=== PATIENT | male | born 1965 | race Caucasian/White ===

== ENCOUNTER 2018-10-06 07:59 | Day surgery (SDC) | payer OTHER ==
[2018-10-02 09:43] VITALS: BMI 30.8
[~2018-10-06 07:59] MED LIST: LACTATED RINGERS 1,000 ML IV SCH
[2018-10-06] MEDS ORDERED: LACTATED RINGERS 1,000 ML IV ONE (08:35)
[2018-10-06 08:37] VITALS: RESP 16; TEMP 97.1
[2018-10-06] MEDS ORDERED: fentaNYL (PF) 50 MCG/ML 2 ML AMP ONE (08:51)
[2018-10-06] MEDS ORDERED: MIDAZOLAM 2 MG/2 ML VIAL ONE (08:51)
[2018-10-06] MEDS ORDERED: PROPOFOL 10 MG/ML 20 ML VIAL IV ONE (08:51)
--- NOTE | 2018-10-06 08:56 | P.GSHP ---
History of Present Illness H&P Date: 10/06/18 Chief Complaint: Screening colonoscopy This is a 53-year-old male who presents today for screening colonoscopy. Patient denies any significant GI complaints. 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), ORIF rt wrist Past Anesthesia/Blood Transfusion Reactions: Postoperative Nausea & Vomiting ( PONV) Smoking Status: Former smoker - Past Family History Mother Family Medical History: No Reported History Medications and Allergies Home Medications Medication Instructions Recorded Confirmed Type Allopurinol [Zyloprim] 100 mg PO DAILY 10/02/18 10/06/18 History Naltrexone HCl [Revia] 50 mg PO DAILY 10/02/18 10/06/18 History Vortioxetine Hydrobromide 10 mg PO DAILY 10/02/18 10/06/18 History [Trintellix] Allergies Allergy/AdvReac Type Severity Reaction Status Date / Time meperidine [From Demerol] Allergy Nausea Verified 10/06/18 08:36 Surgical - Exam Vital Signs Temp Pulse Resp BP Pulse Ox 97.1 F L 88 16 138/75 97 10/06/18 08:15 10/06/18 08:15 10/06/18 08:15 10/06/18 08:15 10/06/18 08:15 - General well developed, well nourished, no distress - Eyes PERRL - ENT normal pinna - Neck no masses - Respiratory normal expansion - Cardiovascular Rhythm: regular - Abdomen Abdomen: soft, non tender Assessment and Plan Assessment: We'll perform screening colonoscopy.
--- NOTE | 2018-10-06 09:10 | P.OP ---
Date of Procedure: 10/06/18 Preoperative Diagnosis: Screening colonoscopy Postoperative Diagnosis: Diverticulosis Left colon polyp Procedure(s) Performed: Colonoscopy Anesthesia: MAC Surgeon: Ky Hurtado Pathology: other (Left colon polyp) Condition: stable Disposition: PACU Description of Procedure: The patient's placed on the endoscopy table in the lateral position. He received IV sedation. Digital rectal exam was performed which revealed no abnormalities. The prostate was symmetric without nodules. The flexor colonoscope was then placed patient anus and passed throughout the entire colon. The ileocecal valve was visualized. The cecum, ascending and transverse colon appeared normal. In the descending colon there was a hole seen this removed with the snare. In the descending and; there is mild diverticular changes. Scope was then brought back the rectum and this appeared normal. Scope was withdrawn for patient.
[2018-10-06 09:30] VITALS: BP 106/71; PULSE 59
== END 2018-10-06 09:52 | disposition home or self-care (01) ==
LOC: ORWHC2ENDO 07:59
PROVIDERS: ATTEND Surgery
DX: Z12.11 Encounter for screening for malignant neoplasm of colon (principal); D12.4 Benign neoplasm of descending colon; K57.30 Diverticulosis of large intestine without perforation or abscess without bleeding; E78.5 Hyperlipidemia, unspecified; M10.9 Gout, unspecified; F32.9 Major depressive disorder, single episode, unspecified; Z87.891 Personal history of nicotine dependence; Z89.612 Acquired absence of left leg above knee; Z79.891 Long term (current) use of opiate analgesic; Z79.899 Other long term (current) drug therapy; Z88.5 Allergy status to narcotic agent
CPT/HCPCS: 88305; 45385; J2250; J3010; J2704

== ENCOUNTER 2018-10-22 20:31 | Inpatient (IN) | payer OTHER ==
[2018-10-22] MEDS ORDERED: SODIUM CHLORIDE 0.9% 1,000 ML IV STA (20:40)
[2018-10-22] MEDS ORDERED: SODIUM CHLORIDE 0.9% 500 ML 500 ML IV STA (20:40)
[2018-10-22] MEDS ORDERED: SODIUM CHLORIDE 0.9% 1,000 ML with MVI, ADULT NO.4 WITH VIT K 10 ML, THIAMINE 100 MG, F... IV ONE ×4 (20:41)
--- NOTE | 2018-10-22 20:55 | ED ---
Alcohol HPI - General Chief Complaint: Alcohol Stated Complaint: Detox Time Seen by Provider: 10/22/18 20:39 Source: patient, RN notes reviewed Mode of arrival: ambulatory Limitations: no limitations - History of Present Illness Initial Comments: 53-year-old male presents emergency Department with chief complaint of alcohol abuse. Patient has been alcoholic for social years. Patient states he was over 5 years up until 6 months ago he started drinking again. Patient states he drinks approximately 1/5 of vodka daily. Patient states he usually takes and the following day when he feels with jaw symptoms. Patient is requesting detox her medications to help with detox. Patient is not suicidal or homicidal. Patient denies any physical complaints at this time including abdominal pain, nausea vomiting. patient has no chest pain or shortness of breath no fevers or chills. - Related Data Home Medications Medication Instructions Recorded Confirmed Allopurinol [Zyloprim] 100 mg PO DIRECTED 10/02/18 10/22/18 Naltrexone HCl [Revia] 50 mg PO DIRECTED 10/02/18 10/22/18 Vortioxetine Hydrobromide 10 mg PO DIRECTED 10/02/18 10/22/18 [Trintellix] Allergies Allergy/AdvReac Type Severity Reaction Status Date / Time meperidine [From Demerol] AdvReac Nausea Verified 10/22/18 20:53 Review of Systems ROS Statement: Those systems with pertinent positive or pertinent negative responses have been documented in the HPI. ROS Other: All systems not noted in ROS Statement are negative. 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 Absent: scleral icterus, conjunctival injection, periorbital swelling ENT exam: Present: normal exam, normal oropharynx, mucous membranes moist, TM's normal bilaterally, normal external ear exam Neck exam: Present: normal inspection, full ROM. Absent: tenderness, meningismus, lymphadenopathy Respiratory exam: Present: normal lung sounds bilaterally. Absent: respiratory distress, wheezes, rales, rhonchi, stridor Cardiovascular Exam: Present: regular rate, normal rhythm, normal heart sounds. Absent: systolic murmur, diastolic murmur, rubs, gallop, clicks GI/Abdominal exam: Present: soft, normal bowel sounds. Absent: distended, tenderness, guarding, rebound, rigid Back exam: Absent: CVA tenderness (R), CVA tenderness (L) Neurological exam: Present: alert, oriented X3, CN II-XII intact Skin exam: Present: warm, dry, intact, normal color. Absent: rash Course Vital Signs 10/22/18 10/22/18 20:32 21:30 Temperature 98.3 F Pulse Rate 89 95 Respiratory 20 18 Rate Blood Pressure 131/83 145/88 O2 Sat by Pulse 93 L 94 L Oximetry Medical Decision Making - Medical Decision Making 53-year-old male presented for alcohol intoxication. Patient did drive to the emergency department intoxicated. Patient has attempted Aleve multiple times unable to obtain a ride. Patient will be made the hospital for alcohol int oxication, pending withdrawal. - Lab Data Result diagrams: 10/22/18 21:00 10/22/18 21:00 Lab Results 10/22/18 10/22/18 Range/Units 21:00 21:00 WBC 3.8 (3.8-10.6) k/uL RBC 5.02 (4.30-5.90) m/uL Hgb 16.1 (13.0-17.5) gm/dL Hct 46.1 (39.0-53.0) % MCV 91.9 (80.0-100.0) fL MCH 32.0 (25.0-35.0) pg MCHC 34.8 (31.0-37.0) g/dL RDW 13.2 (11.5-15.5) % Plt Count 214 (150-450) k/uL Neutrophils % 23 % Lymphocytes % 62 % Monocytes % 7 % Eosinophils % 4 % Basophils % 1 % Neutrophils # 0.9 L (1.3-7.7) k/uL Lymphocytes # 2.4 (1.0-4.8) k/uL Monocytes # 0.3 (0-1.0) k/uL Eosinophils # 0.1 (0-0.7) k/uL Basophils # 0.1 (0-0.2) k/uL Sodium 139 (137-145) mmol/L Potassium 4.4 (3.5-5.1) mmol/L Chloride 102 (98-107) mmol/L Carbon Dioxide 22 (22-30) mmol/L Anion Gap 15 mmol/L BUN 8 L (9-20) mg/dL Creatinine 0.64 L (0.66-1.25) mg/dL Est GFR (CKD-EPI)AfAm >90 (>60 ml/min/1.73 sqM) Est GFR (CKD-EPI)NonAf >90 (>60 ml/min/1.73 sqM) Glucose 122 H (74-99) mg/dL Calcium 8.8 (8.4-10.2) mg/dL Magnesium 2.0 (1.6-2.3) mg/dL Total Bilirubin 0.8 (0.2-1.3) mg/dL AST 89 H (17-59) U/L ALT 100 H (21-72) U/L Alkaline Phosphatase 170 H (38-126) U/L Total Protein 8.1 (6.3-8.2) g/dL Albumin 4.8 (3.5-5.0) g/dL Lipase 152 (23-300) U/L Serum Alcohol 375 H* mg/dL Disposition Clinical Impression: Alcoholic intoxication, Alcohol withdrawal syndrome Disposition: ADMITTED IP TO THIS HOSP Condition: Fair Referrals: Martínez Hathaway MD [Primary Care Provider] - 1-2 days
[2018-10-22] MEDS ORDERED: LORazepam 2 MG/ML INJ IV STA ×2 (21:15→21:26)
[2018-10-22 21:26] LABS: Basophils # (A) 0.1 k/uL (0-0.2); Basophils % (A) 1 %; Eosinophils # (A) 0.1 k/uL (0-0.7); Eosinophils % (A) 4 %; HCT 46.1 % (39.0-53.0); HGB 16.1 gm/dL (13.0-17.5); Lymphocytes # (A) 2.4 k/uL (1.0-4.8); Lymphocytes % (A) 62 %; MCHC 34.8 g/dL (31.0-37.0); MCV 91.9 fL (80.0-100.0); Mean Platelet Volume 6.3; Monocytes # (A) 0.3 k/uL (0-1.0); Monocytes % (A) 7 %; Neutrophils # (A) 0.9 k/uL (1.3-7.7); Neutrophils % (A) 23 %; Platelet Count 214 k/uL (150-450); RBC 5.02 m/uL (4.30-5.90); RDW 13.2 % (11.5-15.5); WBC 3.8 k/uL (3.8-10.6)
[2018-10-22] MEDS ORDERED: ONDANSETRON 4 MG/2 ML VIAL IVP STA (21:26)
[2018-10-22 21:30] LABS: ALT 100 U/L (21-72); AST 89 U/L (17-59); Albumin 4.8 g/dL (3.5-5.0); Alkaline Phosphatase 170 U/L (38-126); Anion Gap 15 mmol/L; Blood Urea Nitrogen 8 mg/dL (9-20); Calcium 8.8 mg/dL (8.4-10.2); Carbon Dioxide 22 mmol/L (22-30); Chloride 102 mmol/L (98-107); Glucose 122 mg/dL (74-99); Lipase 152 U/L (23-300); Potassium 4.4 mmol/L (3.5-5.1); Sodium 139 mmol/L (137-145); Total Bilirubin 0.8 mg/dL (0.2-1.3); Total Protein 8.1 g/dL (6.3-8.2)
[2018-10-22 21:42] LABS: Alcohol 375 mg/dL
[2018-10-22 21:58] VITALS: RESP 18
[2018-10-22] MEDS ORDERED: ONDANSETRON 4 MG/2 ML VIAL IVP PRN (22:19)
[2018-10-22] MEDS ORDERED: LORazepam 2 MG/ML INJ IV PRN ×3 (22:21)
[2018-10-23 01:45] LABS: Appearance,Urine Clear (Clear); Bilirubin,Urine Negative (Negative); Blood,Urine Negative (Negative); Color,Urine Yellow; Glucose,Urine (UA) Negative (Negative); Ketones,Urine 1+ (Negative); Leukocyte Esterase,Urine Negative (Negative); Nitrite,Urine Negative (Negative); PH, Urine 5.5 (5.0-8.0); Protein,Urine Negative (Negative); Specific Gravity,Urine 1.006 (1.001-1.035); Urobilinogen,Urine <2.0 mg/dL (<2.0)
[2018-10-23 08:06] VITALS: BP 144/84; PULSE 85; TEMP 98.6
[2018-10-23] MEDS: THIAMINE 100 MG TAB PO SCH ×2 (08:46→11:26)
[2018-10-23] MEDS ORDERED: PANTOPRAZOLE 40 MG/10 ML VIAL IV SCH (09:00)
--- NOTE | 2018-10-30 11:17 | HP ---
HISTORY AND PHYSICAL A 53-year-old white male who presents with alcohol abuse, alcohol for many years. He is admitted with sugar levels over 350. He denies suicidal or homicidal ideations. HOME MEDICINES: 1. Zyloprim. 2. ReVia. 3. Trintellix. ALLERGIES: DEMEROL. PAST MEDICAL HISTORY: Dyslipidemia, gout, left leg prosthesis. FAMILY HISTORY: Mother is negative. 14 POINT REVIEW OF SYSTEMS: Negative except for as mentioned in HPI. PHYSICAL EXAMINATION: CARDIOVASCULAR: S1, S2. LUNGS: Clear. GI: Soft. HEMATOLOGIC: Negative Homans. PSYCH: Fair mood and affect. NEUROLOGIC: Alert and orient x3. VASCULAR: Normal dorsalis pedis, posterior tibial, radial pulse. Temp 98.3, pulse 89 to 95, respiratory 18 to 20, blood pressure 130s to 140s/80s, O2 is 93% to 94% on room air. Labs were reviewed. ASSESSMENT: Alcohol intoxication, alcohol withdrawal symptom, detox CIWA protocol. Please see further orders in H and P. MMODL / IJN: [id number] /
--- NOTE | 2018-10-30 11:53 | DS ---
DISCHARGE SUMMARY DATE OF ADMISSION: 10/22/2018 DATE OF DISCHARGE: 10/23/2018 MEDICATIONS: 1. Naltrexone 50 mg daily. 2. Trintellix 10 mg daily. 3. Zyloprim 100 mg daily. DISCHARGE DIAGNOSES: 1. Gout. 2. Alcoholism. 3. Depression. Patient came with alcohol intoxication. Discussed with the patient alcohol rehab facilities to go to and the need to quit drinking alcohol. The patient was stabilized. The patient signed out AGAINST MEDICAL ADVICE and was discharged on his own recognizance. MMODL / IJN: [id number] /
== END 2018-10-23 14:11 | disposition left against medical advice (07) | DRG 894 ==
LOC: EC 20:31 → OBSVTOIN 22:25 → 1SOBS 22:25
PROVIDERS: ADMIT Family Medicine; ATTEND Family Medicine
DX: F10.239 Alcohol dependence with withdrawal, unspecified (principal); F32.9 Major depressive disorder, single episode, unspecified; F10.229 Alcohol dependence with intoxication, unspecified; Y90.8 Blood alcohol level of 240 mg/100 ml or more; E78.5 Hyperlipidemia, unspecified; M10.9 Gout, unspecified; Z79.899 Other long term (current) drug therapy; Z97.14 Presence of artificial left leg (complete) (partial); Z87.891 Personal history of nicotine dependence; Z88.5 Allergy status to narcotic agent
CPT/HCPCS: 36415; 80053; 80320; 81003; 83690; 83735; 85025; 96365; 96375; 96376; 99284

== ENCOUNTER 2018-11-18 18:05 | Observation (INO) | payer OTHER ==
--- NOTE | 2018-11-18 19:17 | ED ---
General Adult HPI - General Chief complaint: Chest Pain Stated complaint: ETOH, chest pain Time Seen by Provider: 11/18/18 18:43 Source: patient, family, RN notes reviewed Mode of arrival: wheelchair Limitations: no limitations - History of Present Illness Initial comments: Patient is a pleasant 53-year-old male presenting to the emergency department wi th alcohol intoxication and chest discomfort. Majority of history is taken from the . Patient does admit to drinking alcohol daily, more over the past few days. Patient complains of some associated chest discomfort however admits during exam the discomfort is actually in the epigastric region. Patient has had some nausea and one episode of vomiting. states patient has been a little bit shaky at times. - Related Data Home Medications Medication Instructions Recorded Confirmed Allopurinol [Zyloprim] 100 mg PO DIRECTED 10/02/18 11/18/18 Acetaminophen [Tylenol] 325 mg PO Q8HR 11/18/18 11/18/18 Vortioxetine Hydrobromide 20 mg PO DAILY 11/18/18 11/18/18 [Trintellix] Allergies Allergy/AdvReac Type Severity Reaction Status Date / Time meperidine [From Demerol] AdvReac Nausea Verified 11/18/18 19:18 Review of Systems ROS Statement: Those systems with pertinent positive or pertinent negative responses have been documented in the HPI. ROS Other: All systems not noted in ROS Statement are negative. Constitutional: Denies: fever Eyes: Denies: eye pain ENT: Denies: ear pain Respiratory: Denies: cough Cardiovascular: Reports: as per HPI Endocrine: Denies: fatigue Gastrointestinal: Reports: as per HPI, abdominal pain, nausea Genitourinary: Denies: dysuria Musculoskeletal: Denies: back pain Skin: Denies: rash Neurological: Denies: weakness 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), ORIF rt wrist Past Anesthesia/Blood Transfusion Reactions: Postoperative Nausea & Vomiting (PONV) Past Psychological History: No Psychological Hx Reported Smoking Status: Former smoker Past Alcohol Use History: None Reported Past Drug Use History: None Reported - Past Family History Mother Family Medical History: No Reported History General Exam Limitations: no limitations General appearance: alert, appears intoxicated Head exam: Present: atraumatic Eye exam: Present: normal appearance, PERRL, EOMI, nystagmus ENT exam: Present: normal oropharynx Neck exam: Present: normal inspection Respiratory exam: Present: normal lung sounds bilaterally Cardiovascular Exam: Present: regular rate, normal rhythm Expanded Peripheral pulses: 2+: Radial (R), Radial (L), Dorsalis Pedis (R), Dorsalis Pedis (L) GI/Abdominal exam: Present: soft, tenderness (Moderate epigastric tenderness), normal bowel sounds. Absent: distended, guarding, rebound, rigid, pulsatile mass Extremities exam: Present: normal inspection, other (Left leg amputation). Absent: pedal edema, calf tenderness Neurological exam: Present: alert Psychiatric exam: Present: normal affect, normal mood Skin exam: Present: normal color Course Vital Signs 11/18/18 18:16 Temperature 98.2 F Pulse Rate 84 Respiratory 16 Rate Blood Pressure 134/89 O2 Sat by Pulse 96 Oximetry EKG Findings - EKG Comments: EKG Findings:: Normal sinus rhythm 74. NH 172. QRS 104. QT 412. QTC 457. Left axis. Normal QRS. No acute ST change. Medical Decision Making - Medical Decision Making Patient reevaluated. Patient updated. Case was discussed in detail with Dr. Hathaway, who will admit his patient. - Lab Data Result diagrams: 11/18/18 19:46 11/18/18 19:46 Lab Results 11/18/18 11/18/18 11/18/18 Range/Units 19:46 19:46 19:46 WBC 2.9 L (3.8-10.6) k/uL RBC 4.74 (4.30-5.90) m/uL Hgb 15.0 (13.0-17.5) gm/dL Hct 43.0 (39.0-53.0) % MCV 90.7 (80.0-100.0) fL MCH 31.6 (25.0-35.0) pg MCHC 34.9 (31.0-37.0) g/dL RDW 15.1 (11.5-15.5) % Plt Count 102 L D (150-450) k/uL Neutrophils % 37 % Lymphocytes % 47 % Monocytes % 9 % Eosinophils % 2 % Basophils % 2 % Neutrophils # 1.1 L (1.3-7.7) k/uL Lymphocytes # 1.4 (1.0-4.8) k/uL Monocytes # 0.3 (0-1.0) k/uL Eosinophils # 0.1 (0-0.7) k/uL Basophils # 0.1 (0-0.2) k/uL PT (9.0-12.0) sec INR (<1.2) APTT (22.0-30.0) sec Sodium 143 (137-145) mmol/L Potassium 3.6 (3.5-5.1) mmol/L Chloride 101 (98-107) mmol/L Carbon Dioxide 24 (22-30) mmol/L Anion Gap 18 mmol/L BUN 6 L (9-20) mg/dL Creatinine 0.54 L (0.66-1.25) mg/dL Est GFR (CKD-EPI)AfAm >90 (>60 ml/min/1.73 sqM) Est GFR (CKD-EPI)NonAf >90 (>60 ml/min/1.73 sqM) Glucose 117 H (74-99) mg/dL Calcium 8.5 (8.4-10.2) mg/dL Magnesium 1.8 (1.6-2.3) mg/dL Total Bilirubin 1.1 (0.2-1.3) mg/dL AST 161 H (17-59) U/L ALT 117 H (21-72) U/L Alkaline Phosphatase 140 H (38-126) U/L Creatine Kinase 92 (55-170) U/L CK-MB (CK-2) 0.4 (0.0-2.4) ng/mL Troponin I <0.012 (0.000-0.034) ng/mL Total Protein 7.5 (6.3-8.2) g/dL Albumin 4.6 (3.5-5.0) g/dL Amylase 55 (30-110) U/L Lipase 201 (23-300) U/L Serum Alcohol 449 H* mg/dL 11/18/18 Range/Units 19:46 WBC (3.8-10.6) k/uL RBC (4.30-5.90) m/uL Hgb (13.0-17.5) gm/dL Hct (39.0-53.0) % MCV (80.0-100.0) fL MCH (25.0-35.0) pg MCHC (31.0-37.0) g/dL RDW (11.5-15.5) % Plt Count (150-450) k/uL Neutrophils % % Lymphocytes % % Monocytes % % Eosinophils % % Basophils % % Neutrophils # (1.3-7.7) k/uL Lymphocytes # (1.0-4.8) k/uL Monocytes # (0-1.0) k/uL Eosinophils # (0-0.7) k/uL Basophils # (0-0.2) k/uL PT 10.6 (9.0-12.0) sec INR 1.0 (<1.2) APTT 23.3 (22.0-30.0) sec Sodium (137-145) mmol/L Potassium (3.5-5.1) mmol/L Chloride (98-107) mmol/L Carbon Dioxide (22-30) mmol/L Anion Gap mmol/L BUN (9-20) mg/dL Creatinine (0.66-1.25) mg/dL Est GFR (CKD-EPI)AfAm (>60 ml/min/1.73 sqM) Est GFR (CKD-EPI)NonAf (>60 ml/min/1.73 sqM) Glucose (74-99) mg/dL Calcium (8.4-10.2) mg/dL Magnesium (1.6-2.3) mg/dL Total Bilirubin (0.2-1.3) mg/dL AST (17-59) U/L ALT (21-72) U/L Alkaline Phosphatase (38-126) U/L Creatine Kinase (55-170) U/L CK-MB (CK-2) (0.0-2.4) ng/mL Troponin I (0.000-0.034) ng/mL Total Protein (6.3-8.2) g/dL Albumin (3.5-5.0) g/dL Amylase (30-110) U/L Lipase (23-300) U/L Serum Alcohol mg/dL - Radiology Data Radiology results: image reviewed Disposition Clinical Impression: Alcoholic intoxication, Chest pain Disposition: ADMITTED IP TO THIS [facility] Is patient prescribed a controlled substance at d/c from ED?: No Referrals: Martínez Hathaway MD [Primary Care Provider] - 1-2 days Decision Time: 20:45
[2018-11-18] MEDS ORDERED: SODIUM CHLORIDE 0.9% 1,000 ML with MVI, ADULT NO.4 WITH VIT K 10 ML, THIAMINE 100 MG, F... IV ONE ×4 (19:45)
[2018-11-18 20:26] LABS: Basophils # (A) 0.1 k/uL (0-0.2); Basophils % (A) 2 %; Eosinophils # (A) 0.1 k/uL (0-0.7); Eosinophils % (A) 2 %; Lymphocytes # (A) 1.4 k/uL (1.0-4.8); Lymphocytes % (A) 47 %; MCH 31.6 pg (25.0-35.0); MCHC 34.9 g/dL (31.0-37.0); MCV 90.7 fL (80.0-100.0); Mean Platelet Volume 7.4; Monocytes # (A) 0.3 k/uL (0-1.0); Monocytes % (A) 9 %; Neutrophils # (A) 1.1 k/uL (1.3-7.7); Neutrophils % (A) 37 %; Partial Thromboplastin Time 23.3 sec (22.0-30.0); Platelet Count 102 k/uL (150-450); Prothrombin Time 10.6 sec (9.0-12.0); RBC 4.74 m/uL (4.30-5.90); RDW 15.1 % (11.5-15.5); WBC 2.9 k/uL (3.8-10.6)
[2018-11-18] MEDS ORDERED: PANTOPRAZOLE 40 MG/10 ML VIAL IVP STA (20:26)
[2018-11-18 20:28] LABS: ALT 117 U/L (21-72); AST 161 U/L (17-59); Albumin 4.6 g/dL (3.5-5.0); Alkaline Phosphatase 140 U/L (38-126); Amylase 55 U/L (30-110); Anion Gap 18 mmol/L; Blood Urea Nitrogen 6 mg/dL (9-20); Calcium 8.5 mg/dL (8.4-10.2); Carbon Dioxide 24 mmol/L (22-30); Chloride 101 mmol/L (98-107); Creatine Kinase 92 U/L (55-170); Glucose 117 mg/dL (74-99); Lipase 201 U/L (23-300); Magnesium 1.8 mg/dL (1.6-2.3); Potassium 3.6 mmol/L (3.5-5.1); Sodium 143 mmol/L (137-145); Total Bilirubin 1.1 mg/dL (0.2-1.3); Total Protein 7.5 g/dL (6.3-8.2)
[2018-11-18] MEDS ORDERED: SODIUM CHLORIDE 0.9% 500 ML 500 ML IV STA (20:31)
[2018-11-18] MEDS ORDERED: ONDANSETRON 4 MG/2 ML VIAL IVP STA (20:31)
[2018-11-18 20:39] LABS: Alcohol 449 mg/dL; Creatine Kinase MB 0.4 ng/mL (0.0-2.4); Troponin I <0.012 ng/mL (0.000-0.034)
[2018-11-18] MEDS ORDERED: NALOXONE 0.4 MG/ML 1 ML VIAL IV PRN (20:41)
[2018-11-18] MEDS ORDERED: LORazepam 2 MG/ML INJ IV PRN ×2 (20:42)
--- NOTE | 2018-11-18 21:03 | XR ---
EXAMINATION TYPE: XR abdomen 1V DATE OF EXAM: 11/18/2018 COMPARISON: NONE HISTORY: Chest pain. Vomiting. TECHNIQUE: 2 views FINDINGS: 2 supine show no sign of intestinal obstruction or pneumoperitoneum. Fecal pattern is antoinette l. Lung bases are clear. There is no pathologic calcifications over the kidneys. There are phlebolith s in the pelvis. IMPRESSION: Nonacute abdomen.
--- NOTE | 2018-11-18 21:04 | XR ---
EXAMINATION TYPE: XR chest 2V DATE OF EXAM: 11/18/2018 COMPARISON: NONE HISTORY: Chest pain TECHNIQUE: Frontal and lateral views of the chest are obtained. FINDINGS: Heart and mediastinum are normal. Lungs are clear. Diaphragm is normal. Bony thorax appear s normal. IMPRESSION: Normal chest
[2018-11-19] MEDS: SODIUM CHLORIDE 0.9% 1,000 ML IV SCH ×2 (00:15→10:49)
[2018-11-19] MEDS: LORazepam 2 MG/ML INJ IV PRN ×6 (00:18→22:39)
[2018-11-19] MEDS: THIAMINE 100 MG TAB PO SCH ×2 (10:49→15:45)
[2018-11-19] MEDS: PANTOPRAZOLE 40 MG/10 ML VIAL IV SCH (10:49)
--- NOTE | 2018-11-19 15:28 | HP ---
HISTORY AND PHYSICAL Ismael Benjamin is a 53-year-old male who presented to the ED at [facility] with chest discomfort. He had been drinking alcohol. He had some chest discomfort and had this in the epigastric pain. He had nausea and an episode of vomiting. He was a little bit shaky and subsequently was admitted for further evaluation and management. PAST MEDICAL HISTORY: Positive for hyperlipidemia, gout, left leg prosthesis, history of orthopedic surgery, history of an AKA in the left leg, history of ORIF of the right fist, history of postop nausea and vomiting. SOCIAL HISTORY: Patient is a former smoker. He drinks alcohol, about a fifth a day and had been drinking a fifth. FAMILY HISTORY: Noncontributory. MEDICATIONS: Prior to admission were Zyloprim, Tylenol and Trintellix. REVIEW OF SYSTEMS: Noncontributory. PHYSICAL EXAMINATION: Patient had a blood pressure 123/69, respiratory rate of 18, pulse rate of 80, temperature 98.4, O2 SAT on room air is 94%. Patient is sleepy but arousable. HEENT reveals pupils that are equal, no jugular venous distention. Chest is clear. Cardiovascular system reveals an S1, S2. Abdomen is soft. There is no edema. White count is 2.9, hemoglobin of 15, sodium 143, potassium 3.6, chloride 101, bicarb 24, BUN 6, creatinine of 0.54, glucose 117. Alcohol level of 449, AST 161, ALT 117, alk phos 140. IMPRESSION: 1. Metabolic encephalopathy. 2. Alcoholism with acute alcohol intoxication. 3. Alcoholic liver disease. 4. Chest pain. At this point in time, would admit him to the hospital. Keep him on IV fluids, thiamin and multivitamin. GI prophylaxis. Watch for alcohol withdrawal. Depending on how he does. we shall make further changes to his care. MMODL / IJN: [id number] /
[2018-11-19] MEDS ORDERED: Potassium Replacement Protocol 1 EACH MISC MISCELLANE PRN (15:48)
[2018-11-19] MEDS ORDERED: POTASSIUM CHLORIDE ER 20 MEQ TAB.ER PO SCH (16:00)
[2018-11-19 16:10] VITALS: BMI 33.0
[2018-11-19] MEDS: ONDANSETRON 4 MG/2 ML VIAL IVP PRN (18:03)
[2018-11-19] MEDS: POTASSIUM CHLORIDE ER 20 MEQ TAB.ER PO SCH ×2 (19:34→20:36)
[2018-11-19 23:56] VITALS: RESP 18
[2018-11-20] MEDS: SODIUM CHLORIDE 0.9% 1,000 ML IV SCH (02:57)
[2018-11-20 07:55] VITALS: BP 138/76; PULSE 76; TEMP 98.9
[2018-11-20] MEDS: PANTOPRAZOLE 40 MG/10 ML VIAL IV SCH (08:00)
[2018-11-20] MEDS: ONDANSETRON 4 MG/2 ML VIAL IVP PRN (11:07)
[2018-11-20] MEDS: THIAMINE 100 MG TAB PO SCH (15:08)
--- NOTE | 2018-11-21 06:39 | DS ---
DISCHARGE SUMMARY Ismael Benjamin is a 53-year-old male who presented to the ED on November2018. He had come in with chest discomfort. He had been drinking alcohol. He had epigastric pains and nausea and vomiting. He was shaky. PAST MEDICAL HISTORY: Positive for hyperlipidemia, gout, left leg prosthesis, orthopedic surgery, previous AKA, history of ORIF of the right wrist. History of postop nausea and vomiting. SOCIAL HISTORY: Patient is a former smoker. FAMILY HISTORY: Noncontributory. PHYSICAL EXAMINATION: His vitals were stable. He was sleepy but arousable. His chest was clear. Abdomen is soft. He had no edema. INITIAL IMPRESSION: 1. Metabolic encephalopathy. 2. Alcoholism with acute alcohol intoxication. 3. Alcoholic liver disease. 4. Chest pain. The patient was admitted to the hospital, kept on IV fluids, treated with thiamine and multivitamin and GI prophylaxis. He did not develop any jitteriness and did not go through any alcohol withdrawal. On November2018, he was hemodynamically stable, was awake and alert, and was subsequently discharged home. On that day, his respiratory rate is 18, pulse rate of 76, temperature 98.9, blood pressure 138/76, O2 saturation on room air is 95%. HEENT is unremarkable. Chest was clear. Cardiovascular system is S1, S2. Abdomen is soft. There is no edema. Patient was discharged home. DISCHARGE DIAGNOSES: 1. Metabolic encephalopathy. 2. Dehydration. 3. Alcohol intoxication. CONDITION: Stable. DISCHARGE DIET: Regular. ACTIVITIES: As tolerated. DISCHARGE MEDICATIONS: 1. Zyloprim 100 mg p.o. b.i.d. 2. Tylenol 325 mg p.o. q.8h p.r.n. 3. Trintellix 20 mg p.o. daily. He is to follow up with Dr. Martínez Hathaway in one week time. MMODL / IJN: [id number] /
--- NOTE | 2018-11-27 10:15 | CDI ---
Documentation Clarification Form Date: 11/27/2018 9:59:00 AM From: EILEEN Mcguire; Padmini Pimentel Sliver Lap Machine Tender Phone: If you have a question about this query, please contact Padmini Pimentel Sliver Lap Machine Tender at [phone] between 8am and 5pm. Admit Date: 11/19/2018 11:52:00 AM Patient Name: Ismael Benjamin Visit Number: [id number] Discharge Date: 11/20/2018 3:28:00 PM ATTENTION: The Clinical Documentation Specialists (CDI) and [facility] Coding Staff appreciate your assistance in clarifying documentation. Please respond to the clarification below the line at the bottom and electronically sign. The CDI & [facility] Coding staff will review the response and follow-up if needed. Please note: Queries are made part of the Legal Health Record. If you have any questions, please contact the author of this message via ITS. Dr. Rajiv Daly Metabolic Encephalopathy is documented in the H&P and Dischg Summary on this 1 day stay. Details of documentation = ED -Neuro Exam -Alert. History/Risk Factors: Hyperlipidema, gout, AKA. Clinical Indicators: Chest pain, epigastric pain, blood alcohol 449. Vital Signs: BP 123/69, resp 18, pulse 80, temp 98.4 O2 sat on room air 94%. LAB: WBC 2.9, hemoglobin 15, sodium 143, potassium 3.6, chloride 101, bicarb 24, BUN 6, Creatinine 0.54, glucose 117, Blood alcohol 449. Treatment: IV fluids, thiamin and multivitamin. Please document confirmation of the diagnosis of _Metabolic encephalopathy is applicable to this patient for this visit along with its associated clinical indicators (i.e., signs, symptoms, findings, treatments, monitoring). If this condition was ruled out or documented in error, please indicate below. MTDD
--- NOTE | 2018-12-03 10:08 | CDI ---
Documentation Clarification Form Date: 12/03/2018 9:59:00 AM From: EILEEN Mcguire; Padmini Pimentel Mechanical Service Specialist Phone: If you have a question about this query, please contact Padmini Pimentel Mechanical Service Specialist at [phone] between 8am and 5pm. Admit Date: 11/19/2018 11:52:00 AM Patient Name: Ismael Benjamin Visit Number: [id number] Discharge Date: 11/20/2018 3:28:00 PM ATTENTION: The Clinical Documentation Specialists (CDI) and [facility] Coding Staff appreciate your assistance in clarifying documentation. Please respond to the clarification below the line at the bottom and electronically sign. The CDI & [facility] Coding staff will review the response and follow-up if needed. Please note: Queries are made part of the Legal Health Record. If you have any questions, please contact the author of this message via ITS. Dr. Rajiv Daly Metabolic Encephalopathy is documented in the H&P and Dischg Summary on this 1 day stay. Details of documentation = ED -Neuro Exam -Alert. History/Risk Factors: Hyperlipidema, gout, AKA. Clinical Indicators: Chest pain, epigastric pain Vital Signs: BP 123/69, resp 18, pulse 80, temp 98.4 O2 sat on room air 94%. LAB: WBC 2.9, hemoglobin 15, sodium 143, potassium 3.6, chloride 101, bicard 24, BUN 6, Creatinine 0.54, glucose 117, Blood alcohol 449. Treatment: Other Treatment: IV fluids, thiamin and multivitamin. Please document confirmation of the diagnosis of _Metabolic encephalopathy is applicable to this patient for this visit along with its associated clinical indicators (i.e., signs, symptoms, findings, treatments, monitoring). If this condition was ruled out or documented in error, please indicate below. MTDD
== END 2018-11-20 15:28 | disposition home or self-care (01) ==
LOC: EC 18:05 → INTOOBSV 20:41 → OBSVTOIN 20:41 → 1SOBS 20:41 → INTOOBSV 11-19 11:52 → OBSVTOIN 11-19 11:52 → 1SOBS 11-19 18:23 → UNDODISIN 11-20 15:28
PROVIDERS: ADMIT Family Medicine; ATTEND Family Medicine
DX: F10.229 Alcohol dependence with intoxication, unspecified (principal); G93.41 Metabolic encephalopathy; E86.0 Dehydration; R07.89 Other chest pain; K70.9 Alcoholic liver disease, unspecified; E78.5 Hyperlipidemia, unspecified; M10.9 Gout, unspecified; Z97.14 Presence of artificial left leg (complete) (partial); Z87.891 Personal history of nicotine dependence; Z89.612 Acquired absence of left leg above knee; Y90.8 Blood alcohol level of 240 mg/100 ml or more; Z79.899 Other long term (current) drug therapy; Z88.5 Allergy status to narcotic agent
CPT/HCPCS: 96366 ×2; 96375 ×2; 96376 ×2; 96365; 99285; 36415; 93005; 97530; 97162; 80053; 82150; 82550; 82553; 83690; 83735; 84132; 84484 ×2; 85025; 85610; 85730; 80320; 71046; 74018; G0378 ×4; J2060; J3411; J2405 ×3; C9113 ×3

== ENCOUNTER 2019-01-21 22:02 | Observation (INO) | payer OTHER ==
[2019-01-21] MEDS ORDERED: SODIUM CHLORIDE 0.9% 1,000 ML IV STA (22:30)
--- NOTE | 2019-01-21 23:08 | ED ---
General Adult HPI - General Chief complaint: Chest Pain Stated complaint: ETOH,Abd Pain Time Seen by Provider: 01/21/19 22:09 Source: patient, family, EMS Mode of arrival: EMS Limitations: altered mental status (Appears intoxicated) - History of Present Illness Initial comments: This patient is a 53-year-old man brought by ambulance to be evaluated for alcohol intoxication and also had complained of epigastric pain. The patient is able to give a little history but appears very intoxicated, more history is presented by the patient's partner who is at the bedside. She states that she called the ambulance because he was quite intoxicated and was indicating some epigastric pain. The patient when I interview him is denying pains. He states he does not have any chest or abdominal pain. EMS stated that he also had reported epigastric pain when they arrived though it now appears to have resolved. Patient not able to characterize what he was feeling earlier. He does appear to be very intoxicated. He denies dyspnea. Denies nausea or vomiting area -: hour(s) Location: abdomen Radiation: non-radiation Consistency: now resolved Improves with: none Worsens with: none - Related Data Home Medications Medication Instructions Recorded Confirmed Allopurinol [Zyloprim] 100 mg PO DAILY 10/02/18 01/21/19 Vortioxetine Hydrobromide 20 mg PO DAILY 11/18/18 01/21/19 [Trintellix] Naproxen [Naprosyn] 500 mg PO DAILY PRN 01/21/19 01/21/19 Allergies Allergy/AdvReac Type Severity Reaction Status Date / Time meperidine [From Demerol] AdvReac Nausea Verified 01/21/19 22:30 Review of Systems ROS Statement: Those systems with pertinent positive or pertinent negative responses have been documented in the HPI. ROS Other: All systems not noted in ROS Statement are negative. Limitations: ROS unobtainable due to patients medical condition (Intoxicated) Respiratory: Denies: cough, dyspnea Cardiovascular: Denies: chest pain Gastrointestinal: Reports: as per HPI, abdominal pain. 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 Absent: PERRL, EOMI, scleral icterus, conjunctival injection ENT exam: Present: mucous membranes dry Neck exam: Present: normal inspection. Absent: tenderness Respiratory exam: Present: normal lung sounds bilaterally. Absent: respiratory distress, wheezes, rales, rhonchi, stridor Cardiovascular Exam: Present: regular rate, normal rhythm, normal heart sounds. Absent: systolic murmur, diastolic murmur, rubs, gallop GI/Abdominal exam: Present: soft. Absent: distended, tenderness, guarding, rebound, mass Extremities exam: Present: normal inspection, normal capillary refill. Absent: pedal edema, calf tenderness Back exam: Present: normal inspection. Absent: CVA tenderness (R), CVA tenderness (L) Neurological exam: Present: alert, CN II-XII intact, other (Patient has ataxia and dysarthria). Absent: oriented X3 (Oriented to person and place could not state the date.), motor sensory deficit Skin exam: Present: warm, dry, intact, normal color. Absent: rash Course Vital Signs 01/21/19 01/21/19 22:08 23:47 Temperature 97.8 F Pulse Rate 94 72 Respiratory 18 18 Rate Blood Pressure 138/88 130/92 O2 Sat by Pulse 93 L 95 Oximetry EKG Findings - EKG Comments: EKG Findings:: Low-voltage QRS. Possible old anterior infarct. - EKG Results: EKG: interpreted by ERMD, sinus rhythm (Rate 90 bpm) - Blocks, [place], Hypertrophy, ST Abn: QRS axis and voltage: left axis deviation (-30 to -90) Medical Decision Making - Medical Decision Making Patient is a 53-year-old man brought by ambulance for intoxication and also reporting some epigastric pain. Here he does not have any pain. The patient's alcohol level is quite high and he does show some early withdrawal symptoms, being tremulous and he was at times hypertensive. Patient will be admitted given the danger of full DTs developing. - Lab Data Result diagrams: 01/21/19 22:50 01/21/19 22:50 Lab Results 01/21/19 01/21/19 01/21/19 Range/Units 22:50 22:50 22:50 WBC 3.0 L (3.8-10.6) k/uL RBC 3.86 L (4.30-5.90) m/uL Hgb 12.6 L (13.0-17.5) gm/dL Hct 34.4 L (39.0-53.0) % MCV 89.3 (80.0-100.0) fL MCH 32.7 (25.0-35.0) pg MCHC 36.6 (31.0-37.0) g/dL RDW 15.8 H (11.5-15.5) % Plt Count 95 L (150-450) k/uL Neutrophils % 37 % Lymphocytes % 47 % Monocytes % 9 % Eosinophils % 3 % Basophils % 1 % Neutrophils # 1.1 L (1.3-7.7) k/uL Lymphocytes # 1.4 (1.0-4.8) k/uL Monocytes # 0.3 (0-1.0) k/uL Eosinophils # 0.1 (0-0.7) k/uL Basophils # 0.0 (0-0.2) k/uL Manual Slide Review Performed Sodium 141 (137-145) mmol/L Potassium 3.0 L (3.5-5.1) mmol/L Chloride 107 (98-107) mmol/L Carbon Dioxide 19 L (22-30) mmol/L Anion Gap 15 mmol/L BUN 9 (9-20) mg/dL Creatinine 0.56 L (0.66-1.25) mg/dL Est GFR (CKD-EPI)AfAm >90 (>60 ml/min/1.73 sqM) Est GFR (CKD-EPI)NonAf >90 (>60 ml/min/1.73 sqM) Glucose 94 (74-99) mg/dL Calcium 7.3 L (8.4-10.2) mg/dL Total Bilirubin 0.7 (0.2-1.3) mg/dL AST 63 H (17-59) U/L ALT 30 (21-72) U/L Alkaline Phosphatase 117 (38-126) U/L Troponin I <0.012 (0.000-0.034) ng/mL Total Protein 6.0 L (6.3-8.2) g/dL Albumin 3.5 (3.5-5.0) g/dL Amylase 40 (30-110) U/L Lipase 116 (23-300) U/L Serum Alcohol 397 H* mg/dL Disposition Clinical Impression: Alcoholic intoxication, Alcohol withdrawal syndrome Disposition: ADMITTED IP TO THIS [facility] Condition: Serious Instructions (If sedation given, give patient instructions): Alcohol Withdrawal (ED) Is patient prescribed a controlled substance at d/c from ED?: No Referrals: Martínez Hathaway MD [Primary Care Provider] - 1-2 days
[2019-01-21 23:35] LABS: Basophils % (A) 1 %; Eosinophils # (A) 0.1 k/uL (0-0.7); Eosinophils % (A) 3 %; HCT 34.4 % (39.0-53.0); HGB 12.6 gm/dL (13.0-17.5); Lymphocytes # (A) 1.4 k/uL (1.0-4.8); Lymphocytes % (A) 47 %; MCH 32.7 pg (25.0-35.0); MCHC 36.6 g/dL (31.0-37.0); MCV 89.3 fL (80.0-100.0); Mean Platelet Volume 7.4; Monocytes # (A) 0.3 k/uL (0-1.0); Monocytes % (A) 9 %; Neutrophils # (A) 1.1 k/uL (1.3-7.7); Neutrophils % (A) 37 %; RBC 3.86 m/uL (4.30-5.90); RDW 15.8 % (11.5-15.5)
[2019-01-21 23:49] LABS: ALT 30 U/L (21-72); AST 63 U/L (17-59); African American GFR (CKD) >90 (>60 ml/min/1.73 sqM); Albumin 3.5 g/dL (3.5-5.0); Alkaline Phosphatase 117 U/L (38-126); Amylase 40 U/L (30-110); Anion Gap 15 mmol/L; Blood Urea Nitrogen 9 mg/dL (9-20); Calcium 7.3 mg/dL (8.4-10.2); Carbon Dioxide 19 mmol/L (22-30); Chloride 107 mmol/L (98-107); Glucose 94 mg/dL (74-99); Lipase 116 U/L (23-300); Sodium 141 mmol/L (137-145); Total Bilirubin 0.7 mg/dL (0.2-1.3)
[2019-01-22 00:09] LABS: Alcohol 397 mg/dL
[2019-01-22 00:13] LABS: Platelet Count 95 k/uL (150-450)
[2019-01-22] MEDS ORDERED: THIAMINE 100 MG/ML 2 ML VIAL IM STA (01:05)
[2019-01-22] MEDS ORDERED: LORazepam 2 MG/ML INJ IV PRN ×3 (01:05)
[2019-01-22] MEDS ORDERED: NALOXONE 0.4 MG/ML 1 ML VIAL IV PRN (01:06)
[2019-01-22] MEDS ORDERED: IBUPROFEN 400 MG TAB PO PRN (01:06)
[2019-01-22] MEDS ORDERED: MAG HYDROX/AL HYDROX/SIMETH 30 ML CUP PO PRN (01:06)
[2019-01-22] MEDS ORDERED: CALCIUM CARBONATE 500 MG CHEWABLE PO PRN (01:06)
[2019-01-22] MEDS ORDERED: PROCHLORPERAZINE 5 MG TAB PO PRN (01:06)
[2019-01-22] MEDS ORDERED: PROMETHAZINE 25 MG TAB PO PRN (01:06)
[2019-01-22] MEDS ORDERED: POTASSIUM CHLORIDE ER 20 MEQ TAB.ER PO STA (01:08)
[2019-01-22] MEDS: SODIUM CHLORIDE 0.9% 1,000 ML IV SCH ×2 (02:07→09:20)
[2019-01-22 03:00] VITALS: RESP 16
[2019-01-22 07:39] VITALS: BP 129/84; PULSE 88; TEMP 98.5
[2019-01-22] MEDS ORDERED: POTASSIUM CHLORIDE ER 20 MEQ TAB.ER PO SCH (09:00)
[2019-01-22] MEDS ORDERED: FAMOTIDINE 20 MG TAB PO SCH (09:00)
[2019-01-22 11:04] LABS: Appearance,Urine Clear (Clear); Bilirubin,Urine Negative (Negative); Blood,Urine Negative (Negative); Color,Urine Yellow; Glucose,Urine (UA) Negative (Negative); Ketones,Urine 3+ (Negative); Leukocyte Esterase,Urine Negative (Negative); Nitrite,Urine Negative (Negative); PH, Urine 5.5 (5.0-8.0); Protein,Urine Trace (Negative); Specific Gravity,Urine 1.015 (1.001-1.035); Urobilinogen,Urine <2.0 mg/dL (<2.0)
--- NOTE | 2019-01-22 16:02 | P.HPIM ---
History of Present Illness H&P Date: 01/22/19 Chief Complaint: Alcohol intoxication, altered mental status This is a 53-year-old admitted from the hospital with alcohol intoxication and some epigastric pain, he has a history of binge alcohol issue was admitted into hospital for withdrawal, patient has a history of gout and left leg prosthesis, labs are abnormal for leukopenia, anemia, level over 397 Review of Systems All systems: negative 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), ORIF rt wrist Past Anesthesia/Blood Transfusion Reactions: Postoperative Nausea & Vomiting (PONV) Past Psychological History: No Psychological Hx Reported Smoking Status: Former smoker Past Alcohol Use History: Daily Additional Past Alcohol Use History / Comment(s): smoked a few oer day, patient drinks a fifth of vodka every day Past Drug Use History: None Reported Additional Drug Use History / Comment(s): Patient reports last drink was 01/21/19 - Past Family History Mother Family Medical History: No Reported History Father Additional Family Medical History / Comment(s): Heart Disease Medications and Allergies Home Medications Medication Instructions Recorded Confirmed Type Allopurinol [Zyloprim] 100 mg PO DAILY 10/02/18 01/21/19 History Vortioxetine Hydrobromide 20 mg PO DAILY 11/18/18 01/21/19 History [Trintellix] Naproxen [Naprosyn] 500 mg PO DAILY PRN 01/21/19 01/21/19 History Allergies Allergy/AdvReac Type Severity Reaction Status Date / Time meperidine [From Demerol] AdvReac Nausea Verified 01/21/19 22:30 Physical Exam Vitals: Vital Signs Temp Pulse Pulse Resp BP BP Pulse Ox 01/22/19 07:00 98.5 F 88 16 129/84 93 L 01/22/19 02:45 98.0 F 98 16 124/87 98 01/22/19 02:11 97.9 F 94 18 131/93 97 01/21/19 23:47 72 18 130/92 95 01/21/19 22:08 97.8 F 94 18 138/88 93 L Intake and Output 01/22/19 01/22/19 01/22/19 06:59 14:59 22:59 Intake Total 1000 480 Balance 1000 480 Intake: Intake, IV Titration 1000 Amount Sodium Chloride 0.9% 1, 1000 000 ml @ 125 mls/hr IV . Q8H [facility] Rx#:[id number] Oral 480 - Constitutional General appearance: average body habitus, cooperative, disheveled, morbidly obese - EENT Eyes: anicteric sclerae, EOMI, PERRLA, dentition normal, normal appearance ENT: normal oropharynx Ears: bilateral: normal - Neck Neck: normal ROM Carotids: bilateral: upstroke normal Thyroid: bilateral: normal size - Respiratory Respiratory: bilateral: CTA - Cardiovascular Rhythm: regular Heart sounds: normal: S1, S2 - Gastrointestinal General gastrointestinal: distended, normal bowel sounds, soft - Neurologic Neurologic: CNII-XII intact - Musculoskeletal Musculoskeletal: gait normal, generalized weakness, strength equal bilaterally - Psychiatric Psychiatric: A&O x's 3, appropriate affect, intact judgment & insight Results CBC & Chem 7: 01/21/19 22:50 01/21/19 22:50 Labs: Abnormal Lab Results - Last 24 Hours (Table) 01/21/19 01/21/19 01/22/19 Range/Units 22:50 22:50 10:00 WBC 3.0 L (3.8-10.6) k/uL RBC 3.86 L (4.30-5.90) m/uL Hgb 12.6 L (13.0-17.5) gm/dL Hct 34.4 L (39.0-53.0) % RDW 15.8 H (11.5-15.5) % Plt Count 95 L (150-450) k/uL Neutrophils # 1.1 L (1.3-7.7) k/uL Potassium 3.0 L (3.5-5.1) mmol/L Carbon Dioxide 19 L (22-30) mmol/L Creatinine 0.56 L (0.66-1.25) mg/dL Calcium 7.3 L (8.4-10.2) mg/dL AST 63 H (17-59) U/L Total Protein 6.0 L (6.3-8.2) g/dL Urine Protein Trace H (Negative) Urine Ketones 3+ H (Negative) Serum Alcohol 397 H* mg/dL Thrombosis Risk Factor Assmnt - Choose All That Apply Any of the Below Risk Factors Present?: Yes Each Factor Represents 1 point: Age 41-60 years, Obesity (BMI >25) Thrombosis Risk Factor Assessment Total Risk Factor Score: 2 Thrombosis Risk Factor Assessment Level: Low Risk Assessment and Plan Assessment: Alcohol intoxication level of 397 Leukopenia Chronic anemia Hypokalemia Metabolic acidosis Mildly elevated AST Ketonuria Plan: Repeat labs tomorrow Replace electrolytes When necessary Ativan Gentle rehydration Recommendations pending plan of care as per response Time with Patient: Greater than 30
--- NOTE | 2019-01-22 16:03 | P.DS ---
Providers Date of admission: 01/22/19 01:08 Attending physician: Stuart Colón Consults: 01/22/19 01:05 Consult Physician Routine Consulting Provider: Jenna Nair Consult Reason/Comments: Alcohol addiction/withdrawal Do you want consulting provider notified?: Yes [facility] Course: See H&P and ER progress note Patient Condition at Discharge: Fair Plan - Discharge Summary Discharge Rx Participant: No New Discharge Prescriptions: No Action Allopurinol [Zyloprim] 100 mg PO DAILY Vortioxetine Hydrobromide [Trintellix] 20 mg PO DAILY Naproxen [Naprosyn] 500 mg PO DAILY PRN PRN Reason: Pain Discharge Medication List Allopurinol [Zyloprim] 100 mg PO DAILY 10/02/18 [History] Vortioxetine Hydrobromide [Trintellix] 20 mg PO DAILY 11/18/18 [History] Naproxen [Naprosyn] 500 mg PO DAILY PRN 01/21/19 [History] Follow up Appointment(s)/Referral(s): Martínez Hathaway MD [Primary Care Provider] - 1-2 days Patient Instructions/Handouts: Alcohol Withdrawal (ED) Discharge Disposition: Left Against Medical Advice
[2019-01-22] MEDS ORDERED: THIAMINE 100 MG TAB PO SCH (17:00)
== END 2019-01-22 14:03 | disposition left against medical advice (07) ==
LOC: EC 22:02 → 4SSUR 01-22 01:08
PROVIDERS: ADMIT Internal Medicine Sleep Medicine; ATTEND Internal Medicine Sleep Medicine
DX: F10.239 Alcohol dependence with withdrawal, unspecified (principal); F10.229 Alcohol dependence with intoxication, unspecified; Y90.8 Blood alcohol level of 240 mg/100 ml or more; D64.9 Anemia, unspecified; D72.819 Decreased white blood cell count, unspecified; E78.5 Hyperlipidemia, unspecified; E87.2 Acidosis; R74.0 Nonspecific elevation of levels of transaminase and lactic acid dehydrogenase [LDH]; M10.9 Gout, unspecified; E66.01 Morbid (severe) obesity due to excess calories; Z68.30 Body mass index [BMI] 30.0-30.9, adult; E87.6 Hypokalemia; Z87.891 Personal history of nicotine dependence; Z89.612 Acquired absence of left leg above knee; Z97.14 Presence of artificial left leg (complete) (partial); Z79.899 Other long term (current) drug therapy; Z88.8 Allergy status to other drugs, medicaments and biological substances
CPT/HCPCS: 96360; 96361; 96372; 99285; 36415; 93005; 80053; 82150; 83690; 84484; 85025; 81003; 80320; G0378; J3411

== ENCOUNTER 2019-04-23 15:22 | Emergency (ER) | payer OTHER ==
[2019-04-23 15:37] VITALS: BP 149/93; PULSE 90; RESP 16; TEMP 98.7
[2019-04-23] MEDS ORDERED: SODIUM CHLORIDE 0.9% 1,000 ML IV STA (16:30)
--- NOTE | 2019-04-23 17:06 | ED ---
General Adult HPI - General Chief complaint: Back Pain/Injury Stated complaint: ETOH Time Seen by Provider: 04/23/19 15:50 Source: family, RN notes reviewed, old records reviewed Mode of arrival: wheelchair Limitations: no limitations - History of Present Illness Initial comments: 54-year-old male patient past history significant for alcohol abuse presents in ED with figeeta for concern alcohol abuse. She reports the patient is drinking excessively and had a fall 3 weeks ago. Patient complains of mild paralumbar back pain which he says is chronic. Patient reports he had a fall approximately 3 weeks ago when he broke his nose which he reset himself. Patient denies any loss of consciousness. Patient denies any headache or pain in neck. Denies ch est pain, abdominal pain denies any other complaints at this time. Systemic: Pt denies fatigue, fever/chills, rash. Pt denies weakness, night sweats, weight loss. Neuro: Pt denies headache, visual disturbances, syncope or pre-syncope. HEENT: Pt denies ocular discharge or irritation, otalgia, rhinorrhea, pharyngitis or notable lymphadenopathy. Cardiopulmonary: Pt denies chest pain, SOB, heart palpitations, dyspnea on exertion. Abdominal/GI: Pt denies abdominal pain, n/v/d. : Pt denies dysuria, burning w/ urination, frequency/urgency. Denies new onset urinary or bowel incontinence. MSK: Pt denies loss of strength or function in extremities. Neuro: Pt denies new onset weakness, paresthesias. - Related Data Home Medications Medication Instructions Recorded Confirmed Allopurinol [Zyloprim] 100 mg PO DAILY 10/02/18 01/21/19 Vortioxetine Hydrobromide 20 mg PO DAILY 11/18/18 01/21/19 [Trintellix] Naproxen [Naprosyn] 500 mg PO DAILY PRN 01/21/19 01/21/19 Allergies Allergy/AdvReac Type Severity Reaction Status Date / Time meperidine [From Demerol] AdvReac Nausea Verified 04/23/19 15:37 Review of Systems ROS Statement: Those systems with pertinent positive or pertinent negative responses have been documented in the HPI. ROS Other: All systems not noted in ROS Statement are negative. 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 HEENT: NC/AT, trachea midline, neck supple, no lymphadenopathy. Posterior phary nx non erythematous, without exudates. External ears appear normal, without discharge. Mucous membranes moist. Eyes PERRLA, EOM intact. There is no scleral icterus. No pallor noted. Cardiopulmonary: RRR, no murmurs, rubs or gallops, no JVD noted. Lungs CTAB in anterior and posterior howell. No peripheral edema. Abdominal exam: Abdomen soft and non-distended. Abdomen non-tender to palpation in all 4 quadrants. Bowel sounds active in LLQ. No hepatosplenomegaly. No ecchymosis Neuro: CN II-XII grossly intact. No nuchal rigidity. No raccon eyes, no saldaña sign, no hemotympanum. No cervical spinal tenderness. MSK: Right paralumbar region mildly tender to palpation. No posterior calf tenderness bilaterally, homans sign negative bilaterally. Posterior tibialis and radial pulse +2 bilaterally. Sensation intact in upper and lower extremities. Full active ROM in upper and lower extremities, 5/5 stregnth. Limitations: no limitations Course Vital Signs 04/23/19 15:32 Temperature 98.7 F Pulse Rate 90 Respiratory 16 Rate Blood Pressure 149/93 O2 Sat by Pulse 94 L Oximetry Medical Decision Making - Medical Decision Making 54-year-old male patient presents ED for alcohol abuse. Patient vital signs stable, afebrile. Physical limbs displayed mild right paralumbar tenderness. Laboratory investigations revealed mild hypokalemia, supplemented in ED. CT brain and C-spine did not display acute process. Plain films lumbar spine did not display Acute process. Plan initially was a patient at discharged and go home with matthew. However time discharge stanley requested patient's alcohol be drawn. Alcohol is found to be elevated at 393. Patient was strongly advised admission the hospital. Patient refused. Risks discussed with patient includ ing , patient was understanding. Stanley reportedly able to take him home and watch him for the night. Pt states that he will not be driving any vehicles. AMA. Case discussed in depth with Dr. Stoll. - Lab Data Result diagrams: 04/23/19 16:40 04/23/19 16:40 Lab Results 04/23/19 04/23/19 04/23/19 Range/Units 16:40 16:40 18:45 WBC 2.6 L (3.8-10.6) k/uL RBC 4.77 (4.30-5.90) m/uL Hgb 15.0 (13.0-17.5) gm/dL Hct 43.1 (39.0-53.0) % MCV 90.3 (80.0-100.0) fL MCH 31.4 (25.0-35.0) pg MCHC 34.8 (31.0-37.0) g/dL RDW 15.2 (11.5-15.5) % Plt Count 72 L (150-450) k/uL Neutrophils % 35 % Lymphocytes % 45 % Monocytes % 7 % Eosinophils % 6 % Basophils % 4 % Neutrophils # 0.9 L (1.3-7.7) k/uL Lymphocytes # 1.2 (1.0-4.8) k/uL Monocytes # 0.2 (0-1.0) k/uL Eosinophils # 0.1 (0-0.7) k/uL Basophils # 0.1 (0-0.2) k/uL Manual Slide Review Performed Sodium 140 (137-145) mmol/L Potassium 3.3 L (3.5-5.1) mmol/L Chloride 97 L (98-107) mmol/L Carbon Dioxide 26 (22-30) mmol/L Anion Gap 17 mmol/L BUN 7 L (9-20) mg/dL Creatinine 0.72 (0.66-1.25) mg/dL Est GFR (CKD-EPI)AfAm >90 (>60 ml/min/1.73 sqM) Est GFR (CKD-EPI)NonAf >90 (>60 ml/min/1.73 sqM) Glucose 132 H (74-99) mg/dL Calcium 8.4 (8.4-10.2) mg/dL Serum Alcohol 386 H* mg/dL Disposition Clinical Impression: Substance abuse Disposition: Left Against Medical Advice Condition: Undetermined Additional Instructions: Patient to adhere to previously discussed treatment plan and will take medication(s) as directed. Patient to follow up with PCP in 1-2 days. Patient to return to ED if symptoms do not improve. Follow-up with primary care provider tomorrow, return to ER if condition worsens. Is patient prescribed a controlled substance at d/c from ED?: No Referrals: Martínez Hathaway MD [Primary Care Provider] - 1-2 days
[2019-04-23 17:11] LABS: Basophils # (A) 0.1 k/uL (0-0.2); Basophils % (A) 4 %; Eosinophils # (A) 0.1 k/uL (0-0.7); Eosinophils % (A) 6 %; HCT 43.1 % (39.0-53.0); Lymphocytes # (A) 1.2 k/uL (1.0-4.8); Lymphocytes % (A) 45 %; MCH 31.4 pg (25.0-35.0); MCHC 34.8 g/dL (31.0-37.0); MCV 90.3 fL (80.0-100.0); Monocytes # (A) 0.2 k/uL (0-1.0); Monocytes % (A) 7 %; Neutrophils # (A) 0.9 k/uL (1.3-7.7); Neutrophils % (A) 35 %; RBC 4.77 m/uL (4.30-5.90); RDW 15.2 % (11.5-15.5); WBC 2.6 k/uL (3.8-10.6)
--- NOTE | 2019-04-23 17:14 | CT ---
EXAMINATION TYPE: CT brain aj barber con DATE OF EXAM: 04/23/2019 COMPARISON: NONE HISTORY: Fall 3 weeks ago. Positive ETOH. Headache and neck pain. CT DLP: 1601.7 mGycm. Automated Exposure Control for Dose Reduction was Utilized. TECHNIQUE: CT scan of the head and cervical spine are performed without contrast. FINDINGS: There is no acute intracranial hemorrhage or midline shift identified. Diffuse ventricula r and sulcal prominence. The globes are intact and the visualized sinuses are clear. The calvarium i s intact. Age-indeterminate displaced fractures to nasal bridge suspected subacute or old as there is no focal soft tissue swelling. Cervical spine is visualized in its entirety from C1 through upper thoracic levels and demonstrates s traightened alignment without evidence of acute fracture or dislocation. Prevertebral soft tissue ap pears within normal limits. The C1-C2 articulation is within normal limits on the coronal images. V ertebral body heights are maintained. Mild to moderate disc space narrowing C5-C6 and C6-C7 levels. M oderate multilevel anterior spurring. Spinal canal is preserved. Thyroid gland is within normal limit s. Lung apices show no pneumothorax. IMPRESSION: 1. There is no acute fracture or dislocation evident in the cervical spine. 2. No acute intracranial hemorrhage or midline shift is seen.
--- NOTE | 2019-04-23 17:17 | XR ---
EXAMINATION TYPE: XR lumbar spine 2 or 3V DATE OF EXAM: 04/23/2019 CLINICAL HISTORY: Fall injury 3 weeks ago with low back pain. TECHNIQUE: Frontal and lateral images of the lumbar spine are obtained. COMPARISON: None FINDINGS: There are 5 lumbar type vertebral bodies identified. The lumbar spine shows straightened alignment without evidence of acute fracture or dislocation. Vertebral body heights are within normal limits. Mild disc space narrowing L2-L3 level. Mild multilevel anterior spurring. Density overlying anterior sacrum lateral view does not replicate on frontal view. IMPRESSION: No acute fracture or dislocation is seen in the lumbar spine.
[2019-04-23 17:21] LABS: African American GFR (CKD) >90 (>60 ml/min/1.73 sqM); Anion Gap 17 mmol/L; Blood Urea Nitrogen 7 mg/dL (9-20); Calcium 8.4 mg/dL (8.4-10.2); Carbon Dioxide 26 mmol/L (22-30); Chloride 97 mmol/L (98-107); Glucose 132 mg/dL (74-99); Non-African American GFR(CKD) >90 (>60 ml/min/1.73 sqM); Potassium 3.3 mmol/L (3.5-5.1); Sodium 140 mmol/L (137-145)
[2019-04-23 17:29] LABS: Platelet Count 72 k/uL (150-450)
[2019-04-23] MEDS ORDERED: POTASSIUM CHLORIDE ER 20 MEQ TAB.ER PO STA (18:23)
== END 2019-04-23 20:53 | disposition left against medical advice (07) ==
LOC: EC 15:22
DX: F10.10 Alcohol abuse, uncomplicated (principal); E87.6 Hypokalemia; M54.5 Low back pain; M10.9 Gout, unspecified; Z87.891 Personal history of nicotine dependence; Z88.5 Allergy status to narcotic agent; Z79.899 Other long term (current) drug therapy; Y90.8 Blood alcohol level of 240 mg/100 ml or more; Z53.20 Procedure and treatment not carried out because of patient's decision for unspecified reasons
CPT/HCPCS: 36415; 70450; 72100; 72125; 80048; 80320; 85025; 96360; 99284

== ENCOUNTER 2019-07-09 17:00 | Inpatient (IN) | payer OTHER ==
[2019-07-09] MEDS ORDERED: SODIUM CHLORIDE 0.9% 1,000 ML IV STA (17:10)
[2019-07-09] MEDS ORDERED: THIAMINE 100 MG/ML 2 ML VIAL IM STA (17:10)
[2019-07-09] MEDS ORDERED: LORazepam 2 MG/ML INJ IV PRN (17:11)
--- NOTE | 2019-07-09 17:13 | ED ---
General Adult HPI - General Stated complaint: ETOH Time Seen by Provider: 07/09/19 17:05 - History of Present Illness Initial comments: Dictation was produced using [employer] dictation software. please excuse any grammatical, word or spelling errors. Chief Complaint: 54-year-old male brought in for EtOH intoxication. History of Present Illness: Due to-year-old male. Patient drinks approximately 1 pint of vodka daily. Patient was at home when he was being visited by family members who are in town from [place]. They decided that enough was enough and that patient's alcohol addiction needs to be addressed. EMS was called patient was brought to the emergency department. Patient was found in his living quarters passed out from alcohol. Patient has any pain complaints at this time. Denies any shortness of breath. Patient is a poor historian at this time given clinical presentation. The ROS documented in this emergency department record has been reviewed and confirmed by me. Those systems with pertinent positive or negative responses have been documented in the HPI. All other systems are other negative and/or noncontributory. PHYSICAL EXAM: General Impression: Alert and oriented x3, not in acute distress, inebriated HEENT: Normocephalic atraumatic, extra-ocular movements intact, pupils equal and reactive to light bilaterally, mucous membranes moist. Cardiovascular: Heart regular rate and rhythm, S1&S2 audible, no murmurs, rubs or gallops Chest: Lungs clear to auscultation bilaterally, no rhonchi, no wheeze, no rales Abdomen: Bowel sounds present, abdomen soft, non-tender, non-distended, no organomegaly Musculoskeletal: Pulses present and equal in all extremities, no peripheral edema Motor: no focal deficits noted Neurological: CN II-XII grossly intact, no focal motor or sensory deficits noted Skin: Intact with no visualized rashes ED course: 54-year-old male presents with acute EtOH intoxication. Vital signs upon arrival are within acceptable limits. Patient's physical examination is grossly benign. Patient denies suicidal ideation. Family member at bedside reports that patient is suicidal and wants to shoot himself with a gun.. She reports she has a drug problem and he does not feel he is intentionally suicidal. Laboratory evaluation obtained. Leukopenia of 3.1 and rest of CBC unremarkable. Coag panel negative. Metabolic panel shows results consistent with alcoholic ketoacidosis. Serum alcohol is 416. Patient given thiamine, intravenous fluids. He'll be admitted for clinical sobriety with concern for possible EtOH withdrawal development. Psychiatry on consult for possible suicidal ideation. This patient case with Dr. Badillo was went except patient's care. Computed tomography scan of the brain is unremarkable. - Related Data Home Medications Medication Instructions Recorded Confirmed Allopurinol [Zyloprim] 100 mg PO DAILY 10/02/18 07/09/19 Vortioxetine Hydrobromide 20 mg PO DAILY 11/18/18 07/09/19 [Trintellix] Allergies Allergy/AdvReac Type Severity Reaction Status Date / Time meperidine [From Demerol] AdvReac Nausea Verified 07/09/19 18:00 Review of Systems ROS Statement: Those systems with pertinent positive or pertinent negative responses have been documented in the HPI. ROS Other: All systems not noted in ROS Statement are negative. 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), ORIF rt wrist Past Anesthesia/Blood Transfusion Reactions: Postoperative Nausea & Vomiting (PONV) Past Psychological History: No Psychological Hx Reported Smoking Status: Former smoker Past Alcohol Use History: Abuse, Daily, Heavy Past Drug Use History: None Reported - Past Family History Mother Family Medical History: No Reported History Father Additional Family Medical History / Comment(s): Heart Disease Course Vital Signs 07/09/19 17:06 Temperature 97.6 F Pulse Rate 94 Respiratory 18 Rate Blood Pressure 109/86 O2 Sat by Pulse 97 Oximetry Medical Decision Making - Lab Data Result diagrams: 07/09/19 17:26 07/09/19 17:26 Lab Results 07/09/19 07/09/19 07/09/19 Range/Units 17:26 17:26 17:26 WBC 3.1 L (3.8-10.6) k/uL RBC 4.31 (4.30-5.90) m/uL Hgb 13.9 (13.0-17.5) gm/dL Hct 38.8 L (39.0-53.0) % MCV 90.0 (80.0-100.0) fL MCH 32.2 (25.0-35.0) pg MCHC 35.7 (31.0-37.0) g/dL RDW 14.0 (11.5-15.5) % Plt Count 62 L (150-450) k/uL Neutrophils % 24 % Lymphocytes % 63 % Monocytes % 5 % Eosinophils % 5 % Basophils % 1 % Neutrophils # 0.7 L (1.3-7.7) k/uL Lymphocytes # 2.0 (1.0-4.8) k/uL Monocytes # 0.2 (0-1.0) k/uL Eosinophils # 0.2 (0-0.7) k/uL Basophils # 0.0 (0-0.2) k/uL Manual Slide Review Performed PT 11.0 (9.0-12.0) sec INR 1.0 (<1.2) Sodium 140 (137-145) mmol/L Potassium 3.5 (3.5-5.1) mmol/L Chloride 97 L (98-107) mmol/L Carbon Dioxide 24 (22-30) mmol/L Anion Gap 19 mmol/L BUN 8 L (9-20) mg/dL Creatinine 0.64 L (0.66-1.25) mg/dL Est GFR (CKD-EPI)AfAm >90 (>60 ml/min/1.73 sqM) Est GFR (CKD-EPI)NonAf >90 (>60 ml/min/1.73 sqM) Glucose 123 H (74-99) mg/dL Calcium 8.4 (8.4-10.2) mg/dL Magnesium 1.7 (1.6-2.3) mg/dL Total Bilirubin 1.8 H (0.2-1.3) mg/dL AST 149 H (17-59) U/L ALT 88 H (21-72) U/L Alkaline Phosphatase 162 H (38-126) U/L Creatine Kinase 156 (55-170) U/L Total Protein 7.9 (6.3-8.2) g/dL Albumin 4.8 (3.5-5.0) g/dL Lipase 156 (23-300) U/L Serum Alcohol 416 H* mg/dL Disposition Clinical Impression: Alcoholic ketoacidosis, Suicidal ideation Disposition: ADMITTED IP TO THIS HOSP Condition: Fair Referrals: Martínez Hathaway MD [Primary Care Provider] - 1-2 days Decision Time: 18:51
[2019-07-09 17:51] LABS: ALT 88 U/L (21-72); AST 149 U/L (17-59); African American GFR (CKD) >90 (>60 ml/min/1.73 sqM); Albumin 4.8 g/dL (3.5-5.0); Alkaline Phosphatase 162 U/L (38-126); Anion Gap 19 mmol/L; Blood Urea Nitrogen 8 mg/dL (9-20); Calcium 8.4 mg/dL (8.4-10.2); Carbon Dioxide 24 mmol/L (22-30); Chloride 97 mmol/L (98-107); Creatine Kinase 156 U/L (55-170); Glucose 123 mg/dL (74-99); Magnesium 1.7 mg/dL (1.6-2.3); Non-African American GFR(CKD) >90 (>60 ml/min/1.73 sqM); Potassium 3.5 mmol/L (3.5-5.1); Sodium 140 mmol/L (137-145); Total Bilirubin 1.8 mg/dL (0.2-1.3); Total Protein 7.9 g/dL (6.3-8.2)
[2019-07-09] MEDS: LORazepam 2 MG/ML INJ IV PRN ×2 (17:56→23:32)
[2019-07-09 17:59] LABS: Basophils % (A) 1 %; Eosinophils # (A) 0.2 k/uL (0-0.7); Eosinophils % (A) 5 %; HCT 38.8 % (39.0-53.0); HGB 13.9 gm/dL (13.0-17.5); Lymphocytes % (A) 63 %; MCH 32.2 pg (25.0-35.0); MCHC 35.7 g/dL (31.0-37.0); Mean Platelet Volume 7.1; Monocytes # (A) 0.2 k/uL (0-1.0); Monocytes % (A) 5 %; Neutrophils # (A) 0.7 k/uL (1.3-7.7); Neutrophils % (A) 24 %; RBC 4.31 m/uL (4.30-5.90); WBC 3.1 k/uL (3.8-10.6)
[2019-07-09 18:02] LABS: Alcohol 416 mg/dL
--- NOTE | 2019-07-09 18:37 | CT ---
EXAMINATION TYPE: CT brain aj liu DATE OF EXAM: 07/09/2019 COMPARISON: 04/23/2019 HISTORY: ETOH. Found down at home. CT DLP: 1572.5 mGycm Automated exposure control for dose reduction was used. TECHNIQUE: CT scan of the head and cervical spine are performed without contrast. FINDINGS: There is mild atrophy. There is no mass effect nor midline shift. There is no sign of int racranial hemorrhage. Cervical vertebra show normal alignment. There is mild straightening. There is degenerative spurring anteriorly in the mid and lower cervical spine. Facet joints are intact. There is no evidence of a fr acture. IMPRESSION: Mild spondylotic changes in the cervical spine. No fracture. Mild cerebral atrophy. No acute abnormality.
[2019-07-09] MEDS ORDERED: NALOXONE 0.4 MG/ML 1 ML VIAL IV PRN (18:44)
[2019-07-09 18:48] LABS: Platelet Count 62 k/uL (150-450)
[2019-07-09] MEDS: SODIUM CHLORIDE 0.9% 1,000 ML IV SCH (23:02)
[2019-07-10] MEDS: SODIUM CHLORIDE 0.9% 1,000 ML IV SCH ×3 (06:54→21:44)
[2019-07-10] MEDS: LORazepam 2 MG/ML INJ IV PRN ×2 (08:40→20:53)
--- NOTE | 2019-07-10 09:32 | HP ---
HISTORY AND PHYSICAL This patient is a 54-year-old white male who came in with alcohol intoxication. Apparently his alcohol level was over 400. He is having a seizure here today. Apparently his family petitioned him, as they said his alcohol addiction needs to be addressed. He passed out from alcohol, found in his living quarters. He is having seizures here. He apparently has severe depression, also. We are getting psych consult as we speak. He has had outpatient psych medications and alcohol suppression medications in the past. Fourteen-point review of systems negative except for seizures and shaking and inebriation. He appears to be somewhat inebriated at this time with facial redness. He does answer questions appropriately, though. HEAD: Normocephalic, atraumatic. CARDIOVASCULAR: S1, S2. LUNGS: Clear. He is having mid to low 90s. Apparently he has been vomiting overnight a little bit. Lungs are clear. We will do a chest x-ray to rule out aspiration. Bowel sounds are normal. MUSCULOSKELETAL: Shaking and tremor x4 extremities. Motor is poor, but he can move all 4 extremities with shaking. SKIN: No rash, excoriation, bruising. ASSESSMENT: 1. Alcohol withdrawal. 2. Alcohol intoxication. 3. Alcohol withdrawal seizures. 4. Gout. 5. Left leg prosthesis. 6. Dyslipidemia. 7. Severe depression apparently. Psych consult. Neuro consult. WA protocol. Monitor electrolytes. Monitor chest x- ray to rule out aspiration pneumonia, as he has been vomiting overnight. He is saturating pretty well right now on 2 L of oxygen. He has penia secondary to alcoholism, elevated liver enzymes secondary to alcoholism. Please see further orders. MMODL / IJN: [id number] /
[2019-07-10 10:18] LABS: Basophils % (A) 0 %; Eosinophils # (A) 0.1 k/uL (0-0.7); Eosinophils % (A) 3 %; HCT 36.5 % (39.0-53.0); HGB 12.4 gm/dL (13.0-17.5); Lymphocytes # (A) 0.6 k/uL (1.0-4.8); Lymphocytes % (A) 25 %; MCH 31.5 pg (25.0-35.0); MCV 92.8 fL (80.0-100.0); Mean Platelet Volume 8.2; Monocytes # (A) 0.2 k/uL (0-1.0); Monocytes % (A) 8 %; Neutrophils # (A) 1.4 k/uL (1.3-7.7); Neutrophils % (A) 62 %; RBC 3.93 m/uL (4.30-5.90); RDW 13.9 % (11.5-15.5); WBC 2.2 k/uL (3.8-10.6)
[2019-07-10 10:25] LABS: Platelet Count 43 k/uL (150-450)
[2019-07-10 10:28] LABS: ALT 71 U/L (21-72); AST 127 U/L (17-59); African American GFR (CKD) >90 (>60 ml/min/1.73 sqM); Albumin 4.1 g/dL (3.5-5.0); Alkaline Phosphatase 143 U/L (38-126); Anion Gap 14 mmol/L; Blood Urea Nitrogen 9 mg/dL (9-20); Calcium 8.4 mg/dL (8.4-10.2); Carbon Dioxide 24 mmol/L (22-30); Chloride 101 mmol/L (98-107); Glucose 106 mg/dL (74-99); Magnesium 1.4 mg/dL (1.6-2.3); Non-African American GFR(CKD) >90 (>60 ml/min/1.73 sqM); Potassium 3.1 mmol/L (3.5-5.1); Sodium 139 mmol/L (137-145); Total Bilirubin 1.8 mg/dL (0.2-1.3); Total Protein 6.7 g/dL (6.3-8.2)
[2019-07-10] MEDS ORDERED: Potassium Replacement Protocol 1 EACH MISC MISCELLANE PRN ×2 (12:31→13:15)
[2019-07-10] MEDS ORDERED: Magnesium Replacement Protocol 1 EACH MISC MISCELLANE PRN (12:32)
[2019-07-10] MEDS ORDERED: POTASSIUM CHLORIDE 20 MEQ in WATER FOR INJECTION 1 100ML.BAG IVPB SCH (12:45)
[2019-07-10 12:56] VITALS: RESP 18
[2019-07-10] MEDS: MAGNESIUM SULFATE-D5W PMX 1 GM in DEXTROSE/WATER 1 100ML.BAG IVPB SCH ×3 (13:21→16:25)
--- NOTE | 2019-07-10 13:30 | XR ---
EXAMINATION TYPE: XR chest 1V DATE OF EXAM: 07/10/2019 CLINICAL HISTORY: Aspiration. TECHNIQUE: Single AP portable frontal upright view of the chest is obtained. COMPARISON: Chest x-ray November 18, 2018 FINDINGS: There is some chronic parenchymal change most prominent left lung base without suspicious new focal air space opacity, pleural effusion, or pneumothorax seen. Overlying EKG leads are redemon strated. The cardiac silhouette size is stable and upper limits of normal. The osseous structures a re intact. IMPRESSION: No new suspicious acute infiltrate.
[2019-07-10] MEDS: POTASSIUM CHLORIDE ER 20 MEQ TAB.ER PO SCH ×2 (14:41→16:23)
[2019-07-10] MEDS: ONDANSETRON 4 MG/2 ML VIAL IVP PRN ×2 (14:44→21:01)
--- NOTE | 2019-07-10 23:57 | P.CN ---
Psychiatric Consult - . Consult date: 07/10/19 Consult:: Reason for consultation: "suicidal" Identifying data: Patient is a 54-year-old single male who reports history of mild depression started one year ago and long history of alcohol use disorder. The patient was seen after he was admitted to medical floor because he was presented with alcohol intoxication and later developed severe withdrawal symptoms. Chief complaint and history of present illness: Patient denies any current or previous suicidal ideation and explained that it was miscommunication and misunderstanding by his brother. Patient reports that his brother is concerned because of patients drinking habit and the brother thought that patient will drink himself to . Patient reports history of previous sobriety for about 5 years but he relapsed 1.5 year ago, started after was introduced to alcohol in some social gathering and his drinking got worse after he lost his job a year ago. The patient admitted for history of depression started one year ago after he lost his job in [place]. 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 Patient reports has been drinking heavily for the past few weeks with average 2- 3 pints of Vodka daily with last time was before he came to the hospital. He reports his brother called EMS because patient was drinking heavily, but patient denies loss of consciousness or black outs. Patient states that he moved to [place] from [place] about one year ago after he lost his job. Patient denies any current symptoms of feeling hopeless, helplessness, or worthlessness, and denies any suicidal thoughts, suicidal intent, or plan. Patient admitted for symptoms of depression that has been "on and off" for past year including diminished motivation, lack of interest, and sometimes feeling guilty. He reports had started on Antidepressant medications and currently he is on Trintellix with last time took it was one week ago. Patient denies current symptoms or history of severe anxiety, always feeling tense, not able to relax for most of the time and denies panic attacks. He denies any current or previous manic symptoms including feeling inflated self- esteem, a euphoric mood, unusual increased level of energy, lack need to sleep due to increased activities, or impulsive and irrational behavior. Patient denies any current or previous psychotic symptoms including auditory/visual hallucinations, paranoid ideation, and no delusions could be elicited. He denies any PTSD symptoms including nightmares, flashbacks, or intrusive thoughts. He denies any history of SIB. Past psychiatric history: Previous psychiatric hospitalization: Denies Previous suicidal attempts: Denies Previous psychiatric treatment: Depression symptoms started one year ago and was related to loss of job. Started treatment of depression and reports currently taking Trintellix 20 mg daily. Reports previous trials of Wellbutrin and Zoloft. Substance use history: Nicotine: Quitted smoking more than 20 years ago Alcohol: Started to drink as teenager. Alcohol drinking became problematic at his late 20s or early 30s. Patient reports history of previous several DUIs with last time in 2011. He was able to control drinking with complete sobriety for about 5 years but he relapsed 1.5 year ago and continued to increase alcohol drinking over last year which was related to been laid off and feeling depressed. Reports history of severe alcohol withdrawal symptoms but denies any history of DTs or alcohol related seizures. Reports previous inpatient treatment for AUD Tx but he never found it helpful. Related his success during prior sobriety to meeting and support network. Reports started therapy and counseling for AUD last week at [facility]. Patient expressed has good network and support by his family and many of his friends who are living in [place] but still in good relationship with him. Also, he reports his GF lives in [place] and she is planning to come to stay with him in [place]. Denies any use of marijuana or other street drugs. Denies any current or previous IV drug use. Family history of psychiatric illness: Denies any family history of suicide or mental disorders. Reports one of his grandfathers was alcoholic Brief social history: Born in [place] and moved with his parents to [facility]. Moved to live in boarding school at age 17 because he father travelled to [facility] and he couldnt stay with him. Never and has no children. 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 Reports history of been in custodial and arrested related to previous DUIs. Last time was in 2011. Mental status examination; Appearance: The patient appears older than stated age, adequately groomed and dressed in hospital gown, lay in bed, no specific features but presented very tired. Attitude and behavior: engaged, cooperative, fair eye contact. Motor activity: Decreased psychomotor activity Speech: Normal rate, low volume and tone. Not pressured. Mood: Anxious, sad Affect: Restricted Thought form: goal-directed, linear, coherent. Thought content: Non-delusional, denies suicidal thoughts, denies homicidal thoughts, denies intentions or plans. Perception: Denies any auditory or visual hallucinations Attention: No impairment. Patient was able to repeat serial 5. Orientation: Patient was fully oriented to time place person and situation. Insight: Patient has fair insight about his psychiatric disorder. Judgment: Patient has fair judgment about his psychiatric treatment Assessment and diagnosis: Patient continued to deny suicidal thoughts, intent or plan to hurt self or others. Patient has no previous history of suicide and he addressed hopes to get help and achieve sobriety as he did before for 5 years before he relapsed. He mentioned preventive factors against suicide including yazdanism believe, relationships with his girlfriend and his family and social support by his friends. He was talking about future goals to achieve sobriety and return back to work or moving to [place] with his girlfriend. Alcohol Use Disorder, Severe Alcohol Withdrawal. Major depressive disorder, mild to moderate Recommendations: Addressed and ensured patient's safety, patient is not actively suicidal, and denies any active plan or intent of suicide. Patient does not meet the criteria for psychiatric hospitalization. Discussed with patient inpatient rehab treatment for AUD but he effused. Refer the patient to AUD treatment either at inpatient level (preferably) or IOP if he refused inpatient rehab. Refer patient to archives specialist for further evaluation and long-term management of his AUD- consider anti-craving medications. Obtain Collateral from his family- If any concerns about acute risk of hurting self or others, please re-contact psychiatry team. Consider discontinuing 1:1 as patient denies suicidal thoughts. At this time there is no need for further follow-up by psychiatric team. Medication management: Consider Neurontin for post acute withdrawal symptoms and help with seizure-like activities. Continue Thiamine and consider loading with parenteral dose of 250 mg daily for 3 days then continue oral thiamine. Continue Trintellix for depression and anxiety symptoms. Pt. was maintained on 20 mg daily. Discussed the treatment plan with the requesting physician/service. Brief supportive psychotherapy was provided regarding patient's acute and chronic stress. Psycho-education was provided to the patient. Thank you for permitting me to assist in this patient's treatment. Please call psychiatry department if you have any question or need further help with this case.
[2019-07-11] MEDS: SODIUM CHLORIDE 0.9% 1,000 ML IV SCH (05:45)
[2019-07-11 06:27] LABS: Basophils % (A) 0 %; Eosinophils # (A) 0.2 k/uL (0-0.7); Eosinophils % (A) 5 %; HCT 35.6 % (39.0-53.0); Lymphocytes # (A) 0.9 k/uL (1.0-4.8); Lymphocytes % (A) 27 %; MCH 31.6 pg (25.0-35.0); MCHC 33.8 g/dL (31.0-37.0); MCV 93.5 fL (80.0-100.0); Monocytes # (A) 0.2 k/uL (0-1.0); Monocytes % (A) 5 %; Neutrophils # (A) 1.9 k/uL (1.3-7.7); Neutrophils % (A) 61 %; RBC 3.81 m/uL (4.30-5.90); WBC 3.1 k/uL (3.8-10.6)
[2019-07-11 06:37] LABS: Platelet Count 35 k/uL (150-450)
[2019-07-11 06:43] LABS: ALT 66 U/L (21-72); AST 90 U/L (17-59); African American GFR (CKD) >90 (>60 ml/min/1.73 sqM); Albumin 3.9 g/dL (3.5-5.0); Alkaline Phosphatase 131 U/L (38-126); Anion Gap 11 mmol/L; Blood Urea Nitrogen 7 mg/dL (9-20); Calcium 8.6 mg/dL (8.4-10.2); Carbon Dioxide 24 mmol/L (22-30); Chloride 102 mmol/L (98-107); Glucose 127 mg/dL (74-99); Non-African American GFR(CKD) >90 (>60 ml/min/1.73 sqM); Potassium 3.2 mmol/L (3.5-5.1); Sodium 137 mmol/L (137-145); Total Bilirubin 2.3 mg/dL (0.2-1.3); Total Protein 6.6 g/dL (6.3-8.2)
[2019-07-11] MEDS: POTASSIUM CHLORIDE ER 20 MEQ TAB.ER PO SCH ×3 (08:51→16:20)
[2019-07-11] MEDS: THIAMINE 100 MG TAB PO SCH (08:51)
--- NOTE | 2019-07-11 13:26 | US ---
EXAMINATION TYPE: US abdomen complete DATE OF EXAM: 07/11/2019 COMPARISON: NONE CLINICAL HISTORY: liver enzymes ,high bili. abnormal labs. EXAM MEASUREMENTS: Liver Length: 20.3 cm Gallbladder Wall: 0.2 cm CBD: 0.9 cm Spleen: 10.4 cm Right Kidney: 10.1 x 6.3 x 6.0 cm Left Kidney: 11.4 x 4.9 x 5.2 cm Pancreas: Tail obscured by overlying bowel gas. Echogenic in appearance. Liver: Enlarged, heterogenous, echogenic and coarse. Gallbladder: No stones seen Evidence for sonographic Koenig's sign: neg CBD: dilated Spleen: wnl Right Kidney: No hydronephrosis or masses seen Left Kidney: No hydronephrosis or masses seen Upper IVC: wnl Abd Aorta: Limited visualization due to overlying bowel gas. No AAA in visualized portions. The intrahepatic portion of the IVC and proximal abdominal aorta are within normal limits. There is no evidence of cholelithiasis. Common bile duct is unremarkable. The visualized portions of the de souza creas are echogenic. The spleen is unremarkable. Kidneys are symmetric and free of hydronephrosis. No renal lesions are seen. IMPRESSION: Hepatomegaly with underlying hepatic steatosis.
[2019-07-11] MEDS: ONDANSETRON 4 MG/2 ML VIAL IVP PRN (13:39)
--- NOTE | 2019-07-12 01:47 | PN ---
PROGRESS NOTE Admitted with alcoholic ketoacidosis, he was having alcohol withdrawal seizures yesterday. He is on a CIWA protocol and IV Ativan. Await for Psychiatry to see him. He is having less seizures today. He is more awake. Apparently psychiatrists discontinued sitter after 24 hours and will follow up with outpatient medications for depression as an outpatient. Ultrasound shows fatty liver and hepatomegaly. Cardiovascular S1-S2. Lungs clear. GI soft. Hematology no jaundice. Psych: Consult saw the patient. Denies suicidal thoughts per psych consult. Wants to go back to work and move to [place] with his girlfriend. Psychiatrist recommend outpatient treatment. AUD treatment inpatient level. Go to an business continuity specialist for long-term AUD medications. Consider Neurontin for post-acute withdrawal symptoms and help with seizure-like activities. Continue thiamin. Continue Trintellix. Psychologist will be seen. Vivitrol is recommended possibly as an outpatient medication. Try to set this up as an outpatient. MMODL / IJN: [id number] /
[2019-07-12] MEDS: THIAMINE 100 MG TAB PO SCH (08:10)
[2019-07-12] MEDS ORDERED: VORTIOXETINE HYDROBROMIDE 20 MG TABLET PO SCH (09:00)
[2019-07-12] MEDS ORDERED: ALLOPURINOL 100 MG TAB PO SCH (09:00)
[2019-07-12] MEDS ORDERED: Potassium Replacement Protocol 1 EACH MISC MISCELLANE PRN (09:49)
[2019-07-12] MEDS: POTASSIUM CHLORIDE ER 20 MEQ TAB.ER PO SCH ×2 (10:06→10:56)
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
[2019-07-12 16:27] VITALS: BP 130/87; PULSE 88; TEMP 98.7
--- NOTE | 2019-07-16 11:30 | DS ---
DISCHARGE SUMMARY DATE OF ADMISSION: 07/10/2019. DATE OF DISCHARGE: 07/12/2019 CONDITION: Stable. PROGNOSIS: Guarded. Ambulate as tolerated. HOME MEDICINES: 1. Zyloprim 100 mg daily. 2. Protonix 20 mg daily. 3. Neurontin 100 t.i.d. 4. Vitamin, thiamine 100 mg daily. A white male came in with severe alcohol difficulties and withdrawal with the legal limit over 400.4. He is placed on [facility] protocol, was treated for severe alcohol withdrawal seizures. Neurology saw him, recommended Neurontin 100 mg 3 times a day for withdrawal. Thiamine 100 mg daily. Continue with Trintellix for depression 20 mg daily and Zyloprim 100 mg daily for gout. Follow up as an outpatient after his alcohol withdrawal seizures and alcohol dependence were discussed with Psychiatry. He was discharged home to follow up as an outpatient. GERALDO / SELINA: [id number] /
== END 2019-07-12 19:33 | disposition home or self-care (01) | DRG 897 ==
LOC: EC 17:00 → 3NMEDONC 18:45 → 3SCARD 07-10 12:44 → OBSVTOIN 07-10 13:43
PROVIDERS: ADMIT Family Medicine; ATTEND Family Medicine
DX: F10.239 Alcohol dependence with withdrawal, unspecified (principal); E78.2 Mixed hyperlipidemia; E78.5 Hyperlipidemia, unspecified; M10.9 Gout, unspecified; F32.9 Major depressive disorder, single episode, unspecified; R56.9 Unspecified convulsions; F10.229 Alcohol dependence with intoxication, unspecified; K76.0 Fatty (change of) liver, not elsewhere classified; Y90.8 Blood alcohol level of 240 mg/100 ml or more; Z88.8 Allergy status to other drugs, medicaments and biological substances; Z79.899 Other long term (current) drug therapy; Z97.14 Presence of artificial left leg (complete) (partial); Z89.612 Acquired absence of left leg above knee; Z87.828 Personal history of other (healed) physical injury and trauma; Z87.891 Personal history of nicotine dependence; Z98.890 Other specified postprocedural states; Z82.49 Family history of ischemic heart disease and other diseases of the circulatory system
CPT/HCPCS: 36415; 70450; 71045; 72125; 76700; 80053; 80320; 82075; 82550; 83690; 83735; 84132; 85025; 85610; 93005; 96361; 96372; 96374; 99285

== ENCOUNTER 2019-07-26 18:40 | Inpatient (IN) | payer OTHER ==
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
[2019-07-26] MEDS ORDERED: SODIUM CHLORIDE 0.9% 1,000 ML IV STA ×2 (19:40)
[2019-07-26 20:19] LABS: Prothrombin Time 10.9 sec (9.0-12.0)
[2019-07-26 20:25] LABS: ALT 154 U/L (4-49); AST 413 U/L (17-59); African American GFR (CKD) >90 (>60 ml/min/1.73 sqM); Albumin 5.1 g/dL (3.5-5.0); Alkaline Phosphatase 173 U/L (38-126); Anion Gap 31 mmol/L; Blood Urea Nitrogen 11 mg/dL (9-20); Calcium 8.4 mg/dL (8.4-10.2); Carbon Dioxide 12 mmol/L (22-30); Chloride 96 mmol/L (98-107); Glucose 81 mg/dL (74-99); Magnesium 1.7 mg/dL (1.6-2.3); Non-African American GFR(CKD) >90 (>60 ml/min/1.73 sqM); Potassium 3.5 mmol/L (3.5-5.1); Sodium 139 mmol/L (137-145); Total Protein 8.2 g/dL (6.3-8.2)
[2019-07-26 20:37] LABS: Alcohol 430 mg/dL; Basophils # (A) 0.1 k/uL (0-0.2); Basophils % (A) 2 %; Eosinophils # (A) 0.1 k/uL (0-0.7); Eosinophils % (A) 3 %; HCT 46.9 % (39.0-53.0); Lymphocytes # (A) 0.7 k/uL (1.0-4.8); Lymphocytes % (A) 32 %; MCH 33.1 pg (25.0-35.0); MCHC 35.4 g/dL (31.0-37.0); MCV 93.7 fL (80.0-100.0); Mean Platelet Volume 8.7; Monocytes # (A) 0.1 k/uL (0-1.0); Monocytes % (A) 5 %; Neutrophils # (A) 1.3 k/uL (1.3-7.7); Neutrophils % (A) 56 %; RDW 14.3 % (11.5-15.5); WBC 2.2 k/uL (3.8-10.6)
[2019-07-26 20:38] LABS: HGB 16.6 gm/dL (13.0-17.5); Platelet Count 56 k/uL (150-450)
[2019-07-26] MEDS ORDERED: SODIUM CHLORIDE 0.9% 1,000 ML IV ONE (21:15)
[2019-07-26 21:19] LABS: Glucose,Whole Blood 75 mg/dL (75-99)
[2019-07-26] MEDS ORDERED: ONDANSETRON 4 MG/2 ML VIAL IVP STA (22:23)
[2019-07-26] MEDS ORDERED: THIAMINE 100 MG/ML 2 ML VIAL IM STA (22:24)
[2019-07-26] MEDS ORDERED: LORazepam 2 MG/ML INJ IV PRN (22:24)
[2019-07-26] MEDS ORDERED: SODIUM CHLORIDE 0.9% 500 ML 500 ML IV ONE (22:25)
[2019-07-26] MEDS ORDERED: MAGNESIUM SULFATE-D5W PMX 1 GM in DEXTROSE/WATER 1 100ML.BAG IVPB ONE (22:25)
[2019-07-26] MEDS: LORazepam 2 MG/ML INJ IV PRN (22:38)
--- NOTE | 2019-07-26 22:41 | CT ---
EXAMINATION TYPE: CT brain aj wo con DATE OF EXAM: 07/26/2019 COMPARISON: 07/09/2019 HISTORY: trauma, fall CT DLP: 1622.7 mGycm Automated exposure control for dose reduction was used. Ventricles have normal size. There is no mass effect nor midline shift. There is no sign of intracran ial hemorrhage. The calvarium is intact. There is no evidence of cerebral edema. Cervical vertebra have normal alignment. There is anterior spurring throughout the cervical spine. Fa cet joints are intact. The skull base is intact. Impression negative CT scan of the brain. Negative CT scan of the cervical spine. No fracture. No change.
[2019-07-26] MEDS: THIAMINE 100 MG TAB PO SCH (22:43)
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
[2019-07-26] MEDS ORDERED: NALOXONE 0.4 MG/ML 1 ML VIAL IV PRN (23:13)
[2019-07-27] MEDS: LORazepam 2 MG/ML INJ IV PRN ×5 (00:36→20:12)
[2019-07-27 04:53] LABS: ALT 127 U/L (4-49); AST 324 U/L (17-59); African American GFR (CKD) >90 (>60 ml/min/1.73 sqM); Albumin 4.3 g/dL (3.5-5.0); Alkaline Phosphatase 131 U/L (38-126); Anion Gap 20 mmol/L; Basophils # (A) 0.1 k/uL (0-0.2); Basophils % (A) 2 %; Blood Urea Nitrogen 7 mg/dL (9-20); Calcium 6.9 mg/dL (8.4-10.2); Carbon Dioxide 15 mmol/L (22-30); Chloride 102 mmol/L (98-107); Eosinophils # (A) 0.1 k/uL (0-0.7); Eosinophils % (A) 3 %; Glucose 76 mg/dL (74-99); HCT 38.5 % (39.0-53.0); HGB 13.2 gm/dL (13.0-17.5); Lymphocytes # (A) 0.9 k/uL (1.0-4.8); Lymphocytes % (A) 33 %; MCH 32.1 pg (25.0-35.0); MCHC 34.3 g/dL (31.0-37.0); MCV 93.6 fL (80.0-100.0); Magnesium 1.8 mg/dL (1.6-2.3); Mean Platelet Volume 8.7; Monocytes # (A) 0.1 k/uL (0-1.0); Monocytes % (A) 6 %; Neutrophils # (A) 1.4 k/uL (1.3-7.7); Neutrophils % (A) 54 %; Non-African American GFR(CKD) >90 (>60 ml/min/1.73 sqM); Potassium 3.5 mmol/L (3.5-5.1); RBC 4.11 m/uL (4.30-5.90); RDW 14.4 % (11.5-15.5); Sodium 137 mmol/L (137-145); Total Bilirubin 3.3 mg/dL (0.2-1.3); WBC 2.6 k/uL (3.8-10.6)
[2019-07-27 05:04] LABS: Platelet Count 48 k/uL (150-450)
[2019-07-27] MEDS: THIAMINE 100 MG TAB PO SCH ×3 (06:21→17:58)
[2019-07-27] MEDS: GABAPENTIN 100 MG CAP PO SCH ×3 (09:21→20:45)
[2019-07-27] MEDS ORDERED: Potassium Replacement Protocol 1 EACH MISC MISCELLANE PRN (10:09)
[2019-07-27] MEDS ORDERED: Magnesium Replacement Protocol 1 EACH MISC MISCELLANE PRN (10:09)
[2019-07-27 19:34] LABS: Hepatitis A Antibody IgM Non-Reactive (Non-Reactive); Hepatitis B Core IgM Non-Reactive (Non-Reactive); Hepatitis B Surface Antigen Non-Reactive (Non-Reactive); Hepatitis C IgG Antibody Non-Reactive (Non-Reactive)
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
[2019-07-28] MEDS: LORazepam 2 MG/ML INJ IV PRN ×3 (01:11→21:53)
[2019-07-28 06:16] LABS: Basophils # (A) 0.1 k/uL (0-0.2); Basophils % (A) 3 %; Eosinophils # (A) 0.1 k/uL (0-0.7); Eosinophils % (A) 4 %; HCT 38.4 % (39.0-53.0); HGB 12.9 gm/dL (13.0-17.5); Lymphocytes # (A) 0.7 k/uL (1.0-4.8); Lymphocytes % (A) 28 %; MCH 31.5 pg (25.0-35.0); MCHC 33.6 g/dL (31.0-37.0); MCV 93.6 fL (80.0-100.0); Mean Platelet Volume 9.5; Monocytes # (A) 0.1 k/uL (0-1.0); Monocytes % (A) 3 %; Neutrophils # (A) 1.6 k/uL (1.3-7.7); Neutrophils % (A) 62 %; RDW 14.5 % (11.5-15.5); WBC 2.6 k/uL (3.8-10.6)
[2019-07-28 06:25] LABS: ALT 124 U/L (4-49); AST 362 U/L (17-59); African American GFR (CKD) >90 (>60 ml/min/1.73 sqM); Albumin 3.9 g/dL (3.5-5.0); Alkaline Phosphatase 121 U/L (38-126); Anion Gap 12 mmol/L; Blood Urea Nitrogen 10 mg/dL (9-20); Carbon Dioxide 21 mmol/L (22-30); Chloride 103 mmol/L (98-107); Glucose 140 mg/dL (74-99); Magnesium 1.5 mg/dL (1.6-2.3); Non-African American GFR(CKD) >90 (>60 ml/min/1.73 sqM); Potassium 3.2 mmol/L (3.5-5.1); Sodium 136 mmol/L (137-145); Total Bilirubin 5.4 mg/dL (0.2-1.3); Total Protein 6.7 g/dL (6.3-8.2)
[2019-07-28 06:28] LABS: Platelet Count 36 k/uL (150-450)
[2019-07-28] MEDS: THIAMINE 100 MG TAB PO SCH ×3 (06:55→18:23)
[2019-07-28] MEDS: POTASSIUM CHLORIDE ER 20 MEQ TAB.ER PO SCH ×4 (09:21→20:28)
[2019-07-28] MEDS: MAGNESIUM SULFATE-D5W PMX 1 GM in DEXTROSE/WATER 1 100ML.BAG IVPB SCH ×2 (09:21→10:32)
[2019-07-28] MEDS: GABAPENTIN 100 MG CAP PO SCH ×3 (09:21→20:28)
[2019-07-28] MEDS: FOLIC ACID 1 MG TAB PO SCH (09:21)
--- NOTE | 2019-07-28 10:21 | P.CN ---
Psychiatric Consult - . Consult date: 07/28/19 Consult:: 07/28/19 09:59 IDENTIFYING DATA: This patient is a 54-year-old male who currently lives alone in a condo is unmarried/single has no kids and currently unemployed collecting severance pay. HISTORY OF PRESENT ILLNESS: The patient presented to the hospital with alcohol intoxication and was admitted for withdrawal and elevated LFTs. Psychiatry was asked to see patient for history of depression along with alcohol abuse. Robin goodman was seen at the bedside lying in bed and appeared to be somewhat tremulous this morning. He appeared to be tired/lethargic and states that he has been having a difficulty quitting alcohol. He claims that he has been dealing with the stressor of losing his job approximately a year ago and has had difficulties finding another job. He claims that he lost his job at the [employer] due to the "division closing". He states that currently he has been taking his Trintellix 20 mg daily at home however has not been taking it here in the hospital. He states that this time his mood is "okay" and denies any depressive symptoms at this time. He states that he is sleeping throughout the night and has a fair appetite. Patient claims that he got into [facility] and was asking questions about this particular rehab to feature writer. Patient denies being on any medications for alcohol in the past and states that he was getting to be started on the Vivitrol as an outpatient. Patient claims that he is drinking approximately one fifth of vodka daily for the past 2 years and has been unable to care for himself and has been having frequent falls at home. he admits to going to rehab 4 times in the past. He denies using any other drug use at this time. He denies any cigarette use. At this time patient denies any suicidal or homical ideations, intent or plan. Patient denies any auditory, visual h allucinations and denies any paranoia or delusions. he denies any current withdrawal symptoms suffer mild tremor in his hands. He admits to previous seizure in the past from withdrawal from alcohol and denies any symptoms of DTs at this time. PAST PSYCHIATRIC HISTORY: patient admits to having a history of depression and alcohol abuse. He has been on Trintellix 20 mg daily at home which has been prescribed by his PCP. Patient denies any psychiatric outpatient follow-up. He denies any previous history of suicide attempts and denies any psychiatric admits in the past. PAST MEDICAL HISTORY: hyperlipidemia, fatty liver disease ALLERGIES: as per EMR CHEMICAL DEPENDENCY HISTORY: as per HPI FAMILY PSYCHIATRIC/SUBSTANCE USE HISTORY: denies SOCIAL HISTORY: patient states that he was born and raised in [place] and claims to have moved to [place] at nearly age. Patient claims that he did some college and completed high school. He states that he currently lives in a condo and lives alone, is single with no kids and currently collecting severance pay from his previous job. MENTAL STATUS EXAM: General Appearance: Patient appears to be greater than stated age is lethargic, attempts to be cooperative. marginal hygiene and grooming. Fair eye contact. Behavior: Patient is calmly lying in bed without any agitated behavior. somewhat tremulous. Speech: Patient's speech is fluent and nonpressured. concrete. Mood/Affect: Patient reports their mood is "ok", affect is congruent and constricted. Suicidality/Homicidality: Patient denies having any suicidal or homicidal ideation intent or plan. Perceptions: Patient denies any auditory or visual hallucinations. Though content/process: There is no evidence of any delusional thought content and thought process is linear and goal-directed. concrete. Memory and concentration: AOX3, grossly intact for the purposes of this session. Can spell "WORLD" backwards Judgment and insight: Limited IMPRESSIONS: depressive disorder unspecified Alcohol use disorder moderate-severe, currently in withdrawals PLAN: -At this time patient does NOT meet criteria for inpatient psychiatric admission. -Would recommend the following medication changes/additions: can continue with Trintellix 10mg, half the dose of what patient was on as an outpatient as patient currently has significant liver injury. Patient spoke about wanting to be on naltrexone injection however at this time would hold off until liver function tests improve. continue with thiamine, folic acid and multivitamin for chronic alcohol use. -continue with CIWA for etoh w/d and ATivan PRN. continue to monitor vitals cloesly. -patient has been accepted to [facility] on Friday for inpatient substance rehab. -Psychiatry will sign off at this point 07/28/19 10:09
[2019-07-28] MEDS: MULTIVITAMINS, THERA 1 EACH TAB PO SCH (12:59)
[2019-07-28] MEDS: VORTIOXETINE HYDROBROMIDE 10 MG TABLET PO SCH (12:59)
--- NOTE | 2019-07-28 14:38 | P.PN ---
Subjective Progress Note Date: 07/28/19 this is a 54-year-old gentlemanadmitted with depression, alcohol abuse, DTs and multiple other medical issues. Maintained on CIWA protocol with current CIWA scale of 8. potassium 3.2,Currently receiving potassium supplementation.magnesium 1.5-supplementation pending. Evaluated by psychiatry with recommendations noted and appreciated. No inpatient mental health unit admission recommended at this time. Decreased diet intake with no nausea vomiting or diarrhea. Denies chest pain, palpitations.elevated LFTs, T bili 5.4,AST 362, ALT 124.hepatitis serology nonreactive. Objective - Vital Signs Vital signs: Vital Signs Temp 98.5 F 07/28/19 09:00 Pulse 107 H 07/28/19 11:00 Resp 18 07/28/19 11:00 BP 128/77 07/28/19 11:00 Pulse Ox 92 L 07/28/19 11:00 Intake & Output 07/27/19 07/28/19 07/28/19 18:59 06:59 18:59 Intake Total 880 120 240 Balance 880 120 240 Weight 89.5 kg Intake: Intake, IV Titration 160 Amount Sodium Chloride 0.9% 1, 160 000 ml @ 100 mls/hr IV . Q10H STA Rx#:[id number] Oral 720 120 240 Other: Voiding Method Urinal Urinal # Voids 2 1 - Exam PHYSICAL EXAM: VITAL SIGNS: [as above] GENERAL: lying in bed, sleepy,lethargic, mild shakiness HEENT: Conjunctivae normal. eyes normal. NECK: No JVD. No thyroid enlargement. No LNs CARDIOVASCULAR: S1, S2 regular. No murmur RESPIRATION: Breath sounds diminished in the bases. No rhonchi or crackles. No bronchial breathing. ABDOMEN: Soft, nontender . No guarding. no masses palpable. Bowel sounds heard. LEGS: No edema. no swelling NERVOUS SYSTEM: Cranial N 2-12 grossly normal. Moves all 4 limbs. No focal deficits. Strength and sensation grossly intact.. Skin: no rash - Labs CBC & Chem 7: 07/28/19 06:03 07/28/19 05:58 Labs: Abnormal Lab Results - Last 24 Hours (Table) 07/27/19 07/27/19 07/28/19 Range/Units 13:16 17:22 05:58 WBC (3.8-10.6) k/uL RBC (4.30-5.90) m/uL Hgb (13.0-17.5) gm/dL Hct (39.0-53.0) % Plt Count (150-450) k/uL Lymphocytes # (1.0-4.8) k/uL Sodium 136 L (137-145) mmol/L Potassium 3.2 L (3.5-5.1) mmol/L Carbon Dioxide 21 L (22-30) mmol/L Creatinine 0.58 L (0.66-1.25) mg/dL Glucose 140 H (74-99) mg/dL Plasma Lactic Acid Ry 2.5 H* 2.3 H* (0.7-2.0) mmol/L Magnesium 1.5 L (1.6-2.3) mg/dL Total Bilirubin 5.4 H (0.2-1.3) mg/dL AST 362 H (17-59) U/L ALT 124 H (4-49) U/L 07/28/19 Range/Units 06:03 WBC 2.6 L (3.8-10.6) k/uL RBC 4.10 L (4.30-5.90) m/uL Hgb 12.9 L (13.0-17.5) gm/dL Hct 38.4 L (39.0-53.0) % Plt Count 36 L (150-450) k/uL Lymphocytes # 0.7 L (1.0-4.8) k/uL Sodium (137-145) mmol/L Potassium (3.5-5.1) mmol/L Carbon Dioxide (22-30) mmol/L Creatinine (0.66-1.25) mg/dL Glucose (74-99) mg/dL Plasma Lactic Acid Ry (0.7-2.0) mmol/L Magnesium (1.6-2.3) mg/dL Total Bilirubin (0.2-1.3) mg/dL AST (17-59) U/L ALT (4-49) U/L Assessment and Plan Assessment: Alcohol intoxication with DTs Depression family liver Chronic alcoholic liver disease. alcohol dependence History of alcohol-induced seizures hypokalemia Hypomagnesemia Plan: Continue on current medication regime ,monitoring and symptomatic treatment. magnesium and potassium electrolyte replacement as per protocol as ordered. Maintain CIWA protocol and follow with GI closely. close monitoring of electrolyte repeat labs ordered for a.m. Discharge planning in progress for Friday to [facility]. Further recommendations to follow. The impression and plan of care has been dictated as directed. : I performed a history and examination of this patient, discussed the same with the dictator. I agree with the dictator's note ,documented as a scribe. Any additional findings or plans will be noted.
[2019-07-29] MEDS: THIAMINE 100 MG TAB PO SCH ×3 (06:38→16:51)
[2019-07-29 07:00] LABS: Basophils % (A) 1 %; Eosinophils # (A) 0.1 k/uL (0-0.7); Eosinophils % (A) 4 %; HCT 39.1 % (39.0-53.0); HGB 13.7 gm/dL (13.0-17.5); Lymphocytes % (A) 31 %; MCH 32.8 pg (25.0-35.0); MCHC 35.1 g/dL (31.0-37.0); MCV 93.5 fL (80.0-100.0); Mean Platelet Volume 9.7; Monocytes # (A) 0.1 k/uL (0-1.0); Monocytes % (A) 5 %; Neutrophils # (A) 1.8 k/uL (1.3-7.7); Neutrophils % (A) 58 %; Platelet Count 32 k/uL (150-450); RBC 4.18 m/uL (4.30-5.90); RDW 14.5 % (11.5-15.5); WBC 3.1 k/uL (3.8-10.6)
[2019-07-29 07:09] LABS: ALT 153 U/L (4-49); AST 438 U/L (17-59); African American GFR (CKD) >90 (>60 ml/min/1.73 sqM); Albumin 3.9 g/dL (3.5-5.0); Alkaline Phosphatase 122 U/L (38-126); Anion Gap 9 mmol/L; Blood Urea Nitrogen 8 mg/dL (9-20); Calcium 9.2 mg/dL (8.4-10.2); Carbon Dioxide 27 mmol/L (22-30); Chloride 102 mmol/L (98-107); Glucose 152 mg/dL (74-99); Magnesium 1.7 mg/dL (1.6-2.3); Non-African American GFR(CKD) >90 (>60 ml/min/1.73 sqM); Potassium 3.3 mmol/L (3.5-5.1); Sodium 138 mmol/L (137-145); Total Bilirubin 5.3 mg/dL (0.2-1.3); Total Protein 6.8 g/dL (6.3-8.2)
--- NOTE | 2019-07-29 07:21 | P.PN ---
Subjective Progress Note Date: 07/28/19 Principal diagnosis: alcohol abuse, acute alcoholic intoxication, alcoholic liver disease/alcoholic hepatitis patient is seen lying in bed. He has tolerated his diet. No nausea or vomiting. No abdominal pain reported at this time. Objective - Vital Signs Vital signs: Vital Signs Temp 98.5 F 07/28/19 09:00 Pulse 107 H 07/28/19 11:00 Resp 18 07/28/19 11:00 BP 128/77 07/28/19 11:00 Pulse Ox 92 L 07/28/19 11:00 Intake & Output 07/27/19 07/28/19 07/28/19 18:59 06:59 18:59 Intake Total 880 120 240 Balance 880 120 240 Weight 89.5 kg Intake: Intake, IV Titration 160 Amount Sodium Chloride 0.9% 1, 160 000 ml @ 100 mls/hr IV . Q10H STA Rx#:[id number] Oral 720 120 240 Other: Voiding Method Urinal Urinal # Voids 2 - Exam On physical examination, patient appears comfortable in no apparent distress. HEAD: Normocephalic, atraumatic. EYES: mild scleral icterus. No conjunctival injection. MOUTH: No lesions, tongue midline. NECK: Trachea midline, no gross abnormalities. CHEST: Clear to auscultation with no wheezing or rhonchi appreciated. ABDOMEN: Soft, nontender and nondistended. Bowel sounds are positive. No organomegaly. No guarding or rigidity. EXTREMITIES: No pedal edema. SKIN: No rashes, no jaundice. NEUROLOGIC: Alert and oriented x3. Tremulousness with no asterixis noted. - Labs CBC & Chem 7: 07/29/19 06:39 07/29/19 06:39 Labs: Abnormal Lab Results - Last 24 Hours (Table) 07/27/19 07/27/19 07/28/19 Range/Units 13:16 17:22 05:58 WBC (3.8-10.6) k/uL RBC (4.30-5.90) m/uL Hgb (13.0-17.5) gm/dL Hct (39.0-53.0) % Plt Count (150-450) k/uL Lymphocytes # (1.0-4.8) k/uL Sodium 136 L (137-145) mmol/L Potassium 3.2 L (3.5-5.1) mmol/L Carbon Dioxide 21 L (22-30) mmol/L Creatinine 0.58 L (0.66-1.25) mg/dL Glucose 140 H (74-99) mg/dL Plasma Lactic Acid Ry 2.5 H* 2.3 H* (0.7-2.0) mmol/L Magnesium 1.5 L (1.6-2.3) mg/dL Total Bilirubin 5.4 H (0.2-1.3) mg/dL AST 362 H (17-59) U/L ALT 124 H (4-49) U/L 07/28/19 Range/Units 06:03 WBC 2.6 L (3.8-10.6) k/uL RBC 4.10 L (4.30-5.90) m/uL Hgb 12.9 L (13.0-17.5) gm/dL Hct 38.4 L (39.0-53.0) % Plt Count 36 L (150-450) k/uL Lymphocytes # 0.7 L (1.0-4.8) k/uL Sodium (137-145) mmol/L Potassium (3.5-5.1) mmol/L Carbon Dioxide (22-30) mmol/L Creatinine (0.66-1.25) mg/dL Glucose (74-99) mg/dL Plasma Lactic Acid Ry (0.7-2.0) mmol/L Magnesium (1.6-2.3) mg/dL Total Bilirubin (0.2-1.3) mg/dL AST (17-59) U/L ALT (4-49) U/L Assessment and Plan (1) Alcoholic hepatitis Narrative/Plan: 54-year-old male with a history of heavy alcohol abuse who presented to the hospital with acute alcoholic intoxication. Elevated serum transaminases consistent with chronic alcoholic liver disease. CT of the abdomen showed evidence of fatty infiltration of the liver. No evidence of biliary ductal di lation and no gallstones reported. Acute viral hepatitis panel negative. Current Visit: Yes Status: Acute Code(s): K70.10 - ALCOHOLIC HEPATITIS WITHOUT ASCITES SNOMED Code(s): 510453222 (2) Alcoholic liver disease Current Visit: Yes Status: Acute Code(s): K70.9 - ALCOHOLIC LIVER DISEASE, UNSPECIFIED SNOMED Code(s): 66373899 (3) Alcoholic intoxication Current Visit: Yes Status: Acute Code(s): F10.929 - ALCOHOL USE, UNSPECIFIED WITH INTOXICATION, UNSPECIFIED SNOMED Code(s): 08312870 Plan: supportive care Okay for diet as tolerated Hepatitis viral serologies for A, B, and C negative for acute viral infection Abstinence from alcohol Continue to monitor CBC, CMP Avoid hepatotoxic medications Plan is for discharge to alcoholic rehabilitation facility thank you for allowing us to participate in the care of the patient
[2019-07-29] MEDS: VORTIOXETINE HYDROBROMIDE 10 MG TABLET PO SCH (09:06)
[2019-07-29] MEDS: MULTIVITAMINS, THERA 1 EACH TAB PO SCH (09:06)
[2019-07-29] MEDS: GABAPENTIN 100 MG CAP PO SCH ×3 (09:06→23:12)
[2019-07-29] MEDS: FOLIC ACID 1 MG TAB PO SCH (09:07)
[2019-07-29] MEDS ORDERED: Magnesium Replacement Protocol 1 EACH MISC MISCELLANE PRN (13:52)
[2019-07-29] MEDS ORDERED: Potassium Replacement Protocol 1 EACH MISC MISCELLANE PRN (13:52)
--- NOTE | 2019-07-29 15:37 | P.PN ---
Subjective Progress Note Date: 07/29/19 this is a 54-year-old gentlemanadmitted with depression, alcohol abuse, DTs and multiple other medical issues. Maintained on CIWA protocol with current CIWA scale of 8. potassium 3.2,Currently receiving potassium supplementation.magnesium 1.5-supplementation pending. Evaluated by psychiatry with recommendations noted and appreciated. No inpatient mental health unit admission recommended at this time. Decreased diet intake with no nausea vomiting or diarrhea. Denies chest pain, palpitations.elevated LFTs, T bili 5.4,AST 362, ALT 124.hepatitis serology nonreactive. 07/29/2019 continues to improve, CIWA score 4.required Ativan once during the night and none today. No shakes, mild diaphoresis. potassium 3.3, magnesium 1.7. Total bili 5.3 with LFTs trending up.lipase trending up to 740.tolerating diet with no nausea vomiting or diarrhea. Denies abdominal pain. Objective - Vital Signs Vital signs: Vital Signs Temp 98.7 F 07/29/19 12:00 Pulse 52 L 07/29/19 12:00 Resp 16 07/29/19 12:00 BP 121/87 07/29/19 12:00 Pulse Ox 94 L 07/29/19 12:00 Intake & Output 07/28/19 07/29/19 07/29/19 18:59 06:59 18:59 Intake Total 240 120 620 Balance 240 120 620 Weight 90.5 kg Intake: Oral 240 120 620 Other: Voiding Method Urinal Urinal # Voids 1 2 1 # Bowel Movements 1 - Exam PHYSICAL EXAM: VITAL SIGNS: [as above] GENERAL: lying in bed, alert and oriented 3, no acute distress HEENT: Conjunctivae normal. eyes normal. NECK: No JVD. No thyroid enlargement. No LNs CARDIOVASCULAR: S1, S2 regular. No murmur RESPIRATION: Breath sounds diminished in the bases. No rhonchi or crackles. No wheezing. ABDOMEN: Soft, nontender,nondistended . No guarding. no masses palpable. Bowel sounds heard. LEGS: No edema. no swelling NERVOUS SYSTEM: Cranial N 2-12 grossly normal. Moves all 4 limbs. No focal deficits. Strength and sensation grossly intact.. Skin: no rash - Labs CBC & Chem 7: 07/29/19 06:39 07/29/19 06:39 Labs: Abnormal Lab Results - Last 24 Hours (Table) 07/28/19 07/29/19 07/29/19 Range/Units 15:35 06:39 06:39 WBC 3.1 L (3.8-10.6) k/uL RBC 4.18 L (4.30-5.90) m/uL Plt Count 32 L (150-450) k/uL Potassium 3.4 L 3.3 L (3.5-5.1) mmol/L BUN 8 L (9-20) mg/dL Creatinine 0.46 L (0.66-1.25) mg/dL Glucose 152 H (74-99) mg/dL Total Bilirubin 5.3 H (0.2-1.3) mg/dL AST 438 H (17-59) U/L ALT 153 H (4-49) U/L Assessment and Plan Assessment: Alcohol intoxication with DTs Depression family liver Chronic alcoholic liver disease,alcoholic hepatitis. alcohol dependence History of alcohol-induced seizures hypokalemia Hypomagnesemia Plan: Continue on current medication regime ,monitoring and symptomatic treatment. Magnesium and potassium electrolyte replacement as per protocol as ordered.close monitoring of electrolyte repeat labs ordered for a.m. Maintain CIWA protocol.. Discharge planning in progress for Friday to [facility] depending GI clearance and final DC recommendations. Further recommendations to follow. The impression and plan of care has been dictated as directed. : I performed a history and examination of this patient, discussed the same with the dictator. I agree with the dictator's note ,documented as a scribe. Any additional findings or plans will be noted.
--- NOTE | 2019-07-29 22:05 | P.PN ---
Subjective Progress Note Date: 07/29/19 Principal diagnosis: alcohol abuse, acute alcoholic intoxication, alcoholic liver disease/alcoholic hepatitis Patient seen lying in bed reporting that he is tolerating diet. No abdominal pain. Feels better after taking a shower. No signs or symptoms of GI bleeding. Objective - Vital Signs Vital signs: Vital Signs Temp 98.7 F 07/29/19 12:00 Pulse 52 L 07/29/19 12:00 Resp 16 07/29/19 12:00 BP 121/87 07/29/19 12:00 Pulse Ox 94 L 07/29/19 12:00 Intake & Output 07/28/19 07/29/19 07/29/19 18:59 06:59 18:59 Intake Total 240 120 620 Balance 240 120 620 Weight 90.5 kg Intake: Oral 240 120 620 Other: Voiding Method Urinal Urinal # Voids 1 2 1 # Bowel Movements 1 - Exam On physical examination, patient appears comfortable in no apparent distress. HEAD: Normocephalic, atraumatic. EYES: mild scleral icterus. No conjunctival injection. MOUTH: No lesions, tongue midline. NECK: Trachea midline, no gross abnormalities. CHEST: Clear to auscultation with no wheezing or rhonchi appreciated. ABDOMEN: Soft, nontender and nondistended. Bowel sounds are positive. No organomegaly. No guarding or rigidity. EXTREMITIES: No pedal edema. SKIN: No rashes, no jaundice. NEUROLOGIC: Alert and oriented x3. Tremulousness with no asterixis noted. - Labs CBC & Chem 7: 07/29/19 06:39 07/29/19 06:39 Labs: Abnormal Lab Results - Last 24 Hours (Table) 07/28/19 07/28/19 07/29/19 Range/Units 06:03 15:35 06:39 WBC (3.8-10.6) k/uL RBC (4.30-5.90) m/uL Plt Count (150-450) k/uL Potassium 3.4 L 3.3 L (3.5-5.1) mmol/L BUN 8 L (9-20) mg/dL Creatinine 0.46 L (0.66-1.25) mg/dL Glucose 152 H (74-99) mg/dL Total Bilirubin 5.3 H (0.2-1.3) mg/dL AST 438 H (17-59) U/L ALT 153 H (4-49) U/L Lipase 740 H (23-300) U/L 07/29/19 Range/Units 06:39 WBC 3.1 L (3.8-10.6) k/uL RBC 4.18 L (4.30-5.90) m/uL Plt Count 32 L (150-450) k/uL Potassium (3.5-5.1) mmol/L BUN (9-20) mg/dL Creatinine (0.66-1.25) mg/dL Glucose (74-99) mg/dL Total Bilirubin (0.2-1.3) mg/dL AST (17-59) U/L ALT (4-49) U/L Lipase (23-300) U/L Assessment and Plan (1) Alcoholic hepatitis Narrative/Plan: 54-year-old male with a history of heavy alcohol abuse who presented to the hospital with acute alcoholic intoxication. Elevated serum transaminases consistent with chronic alcoholic liver disease. CT of the abdomen showed evidence of fatty infiltration of the liver. No evidence of biliary ductal dilation and no gallstones reported. Acute viral hepatitis panel negative. Current Visit: Yes Status: Acute Code(s): K70.10 - ALCOHOLIC HEPATITIS WITHOUT ASCITES SNOMED Code(s): 728062083 (2) Alcoholic liver disease Current Visit: Yes Status: Acute Code(s): K70.9 - ALCOHOLIC LIVER DISEASE, UNSPECIFIED SNOMED Code(s): 10246446 (3) Alcoholic intoxication Current Visit: Yes Status: Acute Code(s): F10.929 - ALCOHOL USE, UNSPECIFIED WITH INTOXICATION, UNSPECIFIED SNOMED Code(s): 87081227 Plan: supportive care Okay for diet as tolerated Hepatitis viral serologies for A, B, and C negative for acute viral infection Abstinence from alcohol Continue to monitor CBC, CMP Avoid hepatotoxic medications Plan is for discharge to alcoholic rehabilitation facility, okay for discharge from gastroenterology standpoint thank you for allowing us to participate in the care of the patient, the GI service will stand by, please call us back with any questions or concerns
[2019-07-30] MEDS: THIAMINE 100 MG TAB PO SCH ×2 (06:54→08:14)
[2019-07-30] MEDS: FOLIC ACID 1 MG TAB PO SCH (08:13)
[2019-07-30] MEDS: GABAPENTIN 100 MG CAP PO SCH (08:14)
[2019-07-30] MEDS: MULTIVITAMINS, THERA 1 EACH TAB PO SCH (08:14)
[2019-07-30] MEDS: VORTIOXETINE HYDROBROMIDE 10 MG TABLET PO SCH (08:15)
[2019-07-30 08:16] LABS: Magnesium 1.5 mg/dL (1.6-2.3); Potassium 3.5 mmol/L (3.5-5.1)
[2019-07-30] MEDS ORDERED: POTASSIUM CHLORIDE ER 20 MEQ TAB.ER PO STA (08:29)
[2019-07-30 08:53] VITALS: BP 108/80; PULSE 87; RESP 16; TEMP 97.7
[2019-07-30] MEDS ORDERED: MAGNESIUM OXIDE 400 MG TAB PO SCH (09:00)
--- NOTE | 2019-07-30 16:21 | P.DS ---
Providers Date of admission: 07/26/19 23:15 Expected date of discharge: 07/30/19 Attending physician: Martínez Hathaway Consults: 07/27/19 12:57 Consult Physician Routine Consulting Provider: Ilan Randolph Consult Reason/Comments: depression/alcohol Do you want consulting provider notified?: Already Contacted Primary care physician: Martínez Escal[facility]calonzo [facility] Course: Final diagnoses: Alcohol intoxication with DTs Depression family liver Chronic alcoholic liver disease,alcoholic hepatitis. alcohol dependence History of alcohol-induced seizures hypokalemia Hypomagnesemia Hospital course:this is a 54-year-old gentlemanadmitted with depression, alcohol abuse, DTs and multiple other medical issues. Maintained on CIWA protocol with current CIWA scale of 8. potassium 3.2,Currently receiving potassium supplementation.magnesium 1.5-supplementation pending. Evaluated by psychiatry with recommendations noted and appreciated. No inpatient mental health unit admission recommended at this time. Decreased diet intake with no nausea vomiting or diarrhea. Denies chest pain, palpitations.elevated LFTs, T bili 5.4,AST 362, ALT 124.hepatitis serology nonreactive. 07/29/2019 continues to improve, CIWA score 4.required Ativan once during the night and none today. No shakes, mild diaphoresis. potassium 3.3, magnesium 1.7. Total bili 5.3 with LFTs trending up.lipase trending up to 740.tolerating diet with no nausea vomiting or diarrhea. Denies abdominal pain. Significant clinical improvement. Cleared by all consults, GI and psychiatry for discharge. Patient is being discharged to [facility] in a stable condition with guarded prognosis. EXAM: VITAL SIGNS: Sitting up in chair, alert and oriented 3, no acute distress CARDIOVASCULAR: S1, S2 regular. No murmur RESPIRATION: Breath sounds diminished in the bases. No rhonchi or crackles. No wheezing. ABDOMEN: Soft, nontender,nondistended . No guarding. no masses palpable. Bowel sounds heard. NERVOUS SYS: No focal deficits. The impression and plan of care has been dictated as directed. : I performed a history and examination of this patient, discussed the same with the dictator. I agree with the dictator's note ,documented as a scribe. Any additional findings or plans will be noted. Patient Condition at Discharge: Stable Plan - Discharge Summary Discharge Rx Participant: No New Discharge Prescriptions: New Folic Acid 1 mg PO Q24H #30 tab Magnesium Oxide [Mag-Ox] 400 mg PO BID #14 tab Multivitamins, Thera [Multivitamin (formulary)] 1 each PO DAILY #30 tab Thiamine [Vitamin B-1] 100 mg PO DAILY #30 tab Folic Acid 1 mg PO DAILY #30 tablet Magnesium Oxide 400 mg PO BID #14 tablet Multivitamin,Therapeutic [Thera] 1 each PO W/LUNCH #30 tablet Thiamine [Vitamin B-1] 100 mg PO W/LUNCH #30 tablet Continue Allopurinol [Zyloprim] 100 mg PO DAILY Vortioxetine Hydrobromide [Trintellix] 20 mg PO DAILY Gabapentin [Neurontin] 100 mg PO TID #9 cap Thiamine [Vitamin B-1] 100 mg PO DAILY #30 tab Discharge Medication List Allopurinol [Zyloprim] 100 mg PO DAILY 10/02/18 [History] Vortioxetine Hydrobromide [Trintellix] 20 mg PO DAILY 11/18/18 [History] Gabapentin [Neurontin] 100 mg PO TID #9 cap 07/12/19 [Rx] Thiamine [Vitamin B-1] 100 mg PO DAILY #30 tab 07/12/19 [Rx] Folic Acid 1 mg PO DAILY #30 tablet 07/30/19 [Rx] Folic Acid 1 mg PO Q24H #30 tab 07/30/19 [Rx] Magnesium Oxide 400 mg PO BID #14 tablet 07/30/19 [Rx] Magnesium Oxide [Mag-Ox] 400 mg PO BID #14 tab 07/30/19 [Rx] Multivitamin,Therapeutic [Thera] 1 each PO W/LUNCH #30 tablet 07/30/19 [Rx] Multivitamins, Thera [Multivitamin (formulary)] 1 each PO DAILY #30 tab 07/30/19 [Rx] Thiamine [Vitamin B-1] 100 mg PO DAILY #30 tab 07/30/19 [Rx] Thiamine [Vitamin B-1] 100 mg PO W/LUNCH #30 tablet 07/30/19 [Rx] Follow up Appointment(s)/Referral(s): Martínez Hathaway MD [Primary Care Provider] - 08/02/19 11:00 am (Friday) Sussy Guillen MD [STAFF PHYSICIAN] - 6 Weeks (Follow up for abnormal liver enzymes.) Ambulatory/Diagnostic Orders: Basic Metabolic Panel [LAB.AMB] Location: None Selected Patient Instructions/Handouts: Abuse of Alcohol (DC), Alcoholic Hepatitis (DC) Activity/Diet/Wound Care/Special Instructions: Medications sent to Gaby at [facility] so patient had them for discharge. Discharge Disposition: OTHER INSTITUTION NOT DEFINED
== END 2019-07-30 09:48 | DRG 897 ==
LOC: EC 18:40 → 3SCARD 23:15
PROVIDERS: ADMIT Family Medicine; ATTEND Family Medicine
DX: F10.221 Alcohol dependence with intoxication delirium (principal); E78.5 Hyperlipidemia, unspecified; E83.42 Hypomagnesemia; M10.9 Gout, unspecified; F32.9 Major depressive disorder, single episode, unspecified; E87.6 Hypokalemia; K76.0 Fatty (change of) liver, not elsewhere classified; R56.9 Unspecified convulsions; K70.10 Alcoholic hepatitis without ascites; Y90.8 Blood alcohol level of 240 mg/100 ml or more; R29.6 Repeated falls; Z79.899 Other long term (current) drug therapy; Z88.5 Allergy status to narcotic agent; Z89.612 Acquired absence of left leg above knee; Z82.49 Family history of ischemic heart disease and other diseases of the circulatory system; Z98.890 Other specified postprocedural states
CPT/HCPCS: 36415; 70450; 72125; 74177; 80053; 80074; 80320; 83605; 83690; 83735; 84132; 85025; 85610; 93005; 96361; 96365; 96372; 96375; 99285

== ENCOUNTER 2020-01-29 14:50 | Emergency (ER) | payer OTHER ==
[2020-01-29] MEDS ORDERED: THIAMINE 100 MG/ML 2 ML VIAL IM STA (15:02)
[2020-01-29] MEDS ORDERED: LORazepam 2 MG/ML INJ IV PRN ×3 (15:02)
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
[2020-01-29 15:38] LABS: ALT 59 U/L (4-49); AST 206 U/L (17-59); African American GFR (CKD) >90 (>60 ml/min/1.73 sqM); Albumin 5.1 g/dL (3.5-5.0); Alkaline Phosphatase 128 U/L (38-126); Anion Gap 26 mmol/L; Blood Urea Nitrogen 13 mg/dL (9-20); Calcium 9.4 mg/dL (8.4-10.2); Carbon Dioxide 18 mmol/L (22-30); Chloride 90 mmol/L (98-107); Glucose 113 mg/dL (74-99); Magnesium 1.5 mg/dL (1.6-2.3); Non-African American GFR(CKD) >90 (>60 ml/min/1.73 sqM); Potassium 3.6 mmol/L (3.5-5.1); Sodium 134 mmol/L (137-145); Total Bilirubin 3.7 mg/dL (0.2-1.3); Total Protein 8.6 g/dL (6.3-8.2)
[2020-01-29 15:46] LABS: Alcohol 169 mg/dL
[2020-01-29 15:47] LABS: Amylase 307 U/L (30-110)
[2020-01-29] MEDS ORDERED: MAGNESIUM OXIDE 400 MG TAB PO STA (15:54)
[2020-01-29 16:13] LABS: Basophils # (A) 0.1 k/uL (0-0.2); Basophils % (A) 1 %; Eosinophils # (A) 0.1 k/uL (0-0.7); Eosinophils % (A) 2 %; HCT 44.1 % (39.0-53.0); HGB 15.4 gm/dL (13.0-17.5); Lymphocytes # (A) 1.8 k/uL (1.0-4.8); Lymphocytes % (A) 36 %; MCH 31.1 pg (25.0-35.0); MCV 88.8 fL (80.0-100.0); Mean Platelet Volume 9.7; Monocytes # (A) 0.4 k/uL (0-1.0); Monocytes % (A) 8 %; Neutrophils # (A) 2.6 k/uL (1.3-7.7); Neutrophils % (A) 51 %; RBC 4.97 m/uL (4.30-5.90); WBC 5.1 k/uL (3.8-10.6)
[2020-01-29 16:36] LABS: Platelet Count 61 k/uL (150-450)
[2020-01-29] MEDS ORDERED: SODIUM CHLORIDE 0.9% 1,000 ML IV SCH (16:45)
[2020-01-29] MEDS ORDERED: ONDANSETRON 4 MG/2 ML VIAL IVP STA (16:45)
[2020-01-29] MEDS ORDERED: HYDROmorphone 0.5 MG/0.5 ML SYRINGE IVP STA (16:45)
[2020-01-29] MEDS ORDERED: SODIUM CHLORIDE 0.9% 1,000 ML IV ONE (16:45)
[2020-01-29] MEDS ORDERED: SODIUM CHLORIDE 0.9% 500 ML 500 ML IV ONE (16:45)
[2020-01-29] MEDS ORDERED: THIAMINE 100 MG TAB PO SCH (17:30)
--- NOTE | 2020-01-29 17:30 | US ---
EXAMINATION TYPE: US abdomen limited DATE OF EXAM: 01/29/2020 COMPARISON: None CLINICAL HISTORY: 54-year-old male epigastric pain. Pancreatitis per [facility] physician; ETOH TECHNIQUE: Multiple sonographic images of the abdomen are obtained. FINDINGS: EXAM MEASUREMENTS: Liver Length: 20.9 cm Gallbladder Wall: 0.2 cm CBD: 0.5 cm Right Kidney: 10.6 x 6.6 x 4.2 cm Pancreas: Only a small portion of the pancreatic body is seen. Remainder suboptimally visualized due to shadowing from bowel gas. Liver: Echogenic, heterogeneous, and attenuating. Enlarged. These changes limit assessment for focal liver lesions. Gallbladder: wnl Evidence for sonographic Koenig's sign: no CBD: wnl Right Kidney: No hydronephrosis. IMPRESSION: 1. Hepatomegaly (20.9 cm) with moderate to severe hepatic steatosis. 2. No gallstones or acute cholecystitis. No biliary ductal dilatation.
[2020-01-29 21:09] VITALS: BP 119/84; PULSE 103; RESP 20; TEMP 98
== END 2020-01-29 21:15 | disposition left against medical advice (07) ==
LOC: EC 14:50
DX: K85.90 Acute pancreatitis without necrosis or infection, unspecified (principal); F32.9 Major depressive disorder, single episode, unspecified; M10.9 Gout, unspecified; R94.5 Abnormal results of liver function studies; Z88.5 Allergy status to narcotic agent; Z79.899 Other long term (current) drug therapy; Z53.29 Procedure and treatment not carried out because of patient's decision for other reasons; Z86.59 Personal history of other mental and behavioral disorders; Z89.612 Acquired absence of left leg above knee
CPT/HCPCS: 36415; 80053; 82150; 83690; 83735; 85025; 76705; 99284; 96374; 96375 ×2; 96372; 96361 ×2; G0480; U0003; J2060; J3411; J2405; J1170; 80320

== ENCOUNTER → 2020-05-30 | Outpatient (CLI) | payer OTHER ==
[2020-05-30 16:18] LABS: ALT 61 U/L (4-49); AST 55 U/L (17-59); African American GFR (CKD) >90 (>60 ml/min/1.73 sqM); Albumin 4.2 g/dL (3.5-5.0); Albumin/Globulin Ratio 1.4; Alkaline Phosphatase 89 U/L (38-126); Anion Gap 9 mmol/L; Basophils # (A) 0.1 k/uL (0-0.2); Basophils % (A) 1 %; Blood Urea Nitrogen 13 mg/dL (9-20); Calcium 9.7 mg/dL (8.4-10.2); Carbon Dioxide 25 mmol/L (22-30); Chloride 104 mmol/L (98-107); Eosinophils # (A) 0.2 k/uL (0-0.7); Eosinophils % (A) 2 %; Glucose 118 mg/dL (74-99); HCT 44.8 % (39.0-53.0); HGB 14.6 gm/dL (13.0-17.5); Lymphocytes # (A) 2.8 k/uL (1.0-4.8); Lymphocytes % (A) 28 %; MCH 33.6 pg (25.0-35.0); MCHC 32.6 g/dL (31.0-37.0); MCV 102.9 fL (80.0-100.0); Macrocytosis Slight; Magnesium 1.8 mg/dL (1.6-2.3); Mean Platelet Volume 7.7; Monocytes # (A) 0.4 k/uL (0-1.0); Monocytes % (A) 4 %; Neutrophils # (A) 6.5 k/uL (1.3-7.7); Neutrophils % (A) 64 %; Non-African American GFR(CKD) >90 (>60 ml/min/1.73 sqM); Platelet Count 368 k/uL (150-450); Potassium 4.6 mmol/L (3.5-5.1); RBC 4.35 m/uL (4.30-5.90); RDW 13.7 % (11.5-15.5); Sodium 138 mmol/L (137-145); Total Bilirubin 0.7 mg/dL (0.2-1.3); Total Protein 7.2 g/dL (6.3-8.2); WBC 10.2 k/uL (3.8-10.6)
[2020-05-31 01:21] LABS: Hemoglobin A1C 5.8 % (4.0-6.0)
[2020-05-31 05:05] LABS: Prostate Specific Antigen 0.9 ng/mL (0.0-3.5)
== END | disposition home or self-care (01) ==
LOC: LABWHC1 15:34
PROVIDERS: ATTEND Family Medicine
DX: I10 Essential (primary) hypertension (principal); R97.20 Elevated prostate specific antigen [PSA]; Z79.899 Other long term (current) drug therapy
CPT/HCPCS: 36415; 80053; 82140; 83036; 83735; 84153; 85025

== ENCOUNTER → 2021-02-08 | Outpatient (CLI) | payer OTHER ==
[2021-02-08 19:21] LABS: African American GFR (CKD) >90 (>60 ml/min/1.73 sqM); Blood Urea Nitrogen 11 mg/dL (9-20); Non-African American GFR(CKD) >90 (>60 ml/min/1.73 sqM)
--- NOTE | 2021-02-09 07:47 | CT ---
EXAMINATION TYPE: CT abdomen pelvis w con DATE OF EXAM: 02/08/2021 COMPARISON: 07/26/2019 HISTORY: Abdominal/pelvic pain CT DLP: 1618.30 mGycm CONTRAST: CT scan of the abdomen and pelvis is performed with Oral Contrast and with IV Contrast, patient injec anjali with 100 mL of Isovue 300. FINDINGS: LUNG BASES-: No visible nodule. No infiltrate. LIVER/GB: No calcified gallstones. There is evidence of hepatic steatosis. No space occupying hepa tic lesion. Biliary tree is of normal caliber. PANCREAS: No inflammation. No distinct mass. SPLEEN: No splenic enlargement. No lesion seen. ADRENALS: No nodule. No thickening. KIDNEYS/BLADDER: No hydronephrosis. No nephrolithiasis. Stable 2.5 cm cyst upper pole left kidney. Urinary bladder grossly unremarkable. BOWEL: Normal appendix. Normal bowel caliber. No inflammation. GENITAL ORGANS: No gross abnormality. LYMPH NODES: No greater than 1cm abdominal or pelvic lymph nodes are appreciated. AORTA: No significant abnormality. OSSEOUS STRUCTURES: No significant abnormality is seen. OTHER: No significant additional abnormality is seen. IMPRESSION: 1. No distinct abnormality to account for the patient's symptoms.
== END | disposition home or self-care (01) ==
LOC: RADCTMAIN 17:20
PROVIDERS: ATTEND Family Medicine
DX: R10.9 Unspecified abdominal pain (principal)
CPT/HCPCS: 82565; 84520; 74177; 36415; Q9967

== ENCOUNTER → 2021-08-23 | Outpatient (CLI) | payer OTHER ==
--- NOTE | 2021-08-23 15:57 | XR ---
EXAMINATION TYPE: XR elbow complete LT DATE OF EXAM: 08/23/2021 COMPARISON: NONE HISTORY: Pain FINDINGS: Three views of the elbow demonstrate no pathologic joint effusion. The osseous structures are intact . There is no acute fracture or dislocation. IMPRESSION: 1. No acute fracture or dislocation. If symptoms persist follow-up study in 7 to 10 days could be ob tained.
--- NOTE | 2021-08-23 15:58 | XR ---
EXAMINATION TYPE: XR humerus LT DATE OF EXAM: 08/23/2021 COMPARISON: NONE HISTORY: Pain TECHNIQUE: 2 views submitted. FINDINGS: The osseous structures are intact and the joint spaces are preserved. AC joint arthropathy. IMPRESSION: 1. No acute fracture or dislocation.
--- NOTE | 2021-08-23 15:59 | XR ---
EXAMINATION TYPE: XR shoulder complete LT DATE OF EXAM: 08/23/2021 COMPARISON: NONE HISTORY: Pain TECHNIQUE: Three views are submitted. FINDINGS: The osseous structures are intact. There is no acute fracture or dislocation. Mild AC joint arthropa thy. Elevation of the clavicle relative to the acromion. IMPRESSION: 1. AC joint and mild arthropathy with the distance appearing at the upper limits of normal. Slight el evation of the clavicle relative to the acromion. There is concern for a dedicated AC joint separatio n recommend follow-up with MRI. 2. Mild cortical thickening on the oblique view only regard to the proximal diaphysis of the humerus most likely is artifactual or superimposed structures and can also be assessed with MRI.
== END | disposition home or self-care (01) ==
LOC: RADXRMAIN 14:58
PROVIDERS: ATTEND Family Medicine
DX: M12.812 Other specific arthropathies, not elsewhere classified, left shoulder (principal); M79.622 Pain in left upper arm; M79.602 Pain in left arm; M25.572 Pain in left ankle and joints of left foot; M25.522 Pain in left elbow

== ENCOUNTER 2023-03-22 10:42 | Emergency (ER) | payer OTHER ==
[2023-03-22 10:50] VITALS: BP 124/81; PULSE 90; RESP 20; TEMP 98.1
[2023-03-22 11:29] LABS: Basophils # (A) 0.1 k/uL (0-0.2); Basophils % (A) 1 %; Eosinophils # (A) 0.2 k/uL (0-0.7); Eosinophils % (A) 2 %; HCT 42.1 % (39.0-53.0); HGB 14.4 gm/dL (13.0-17.5); Lymphocytes # (A) 2.9 k/uL (1.0-4.8); Lymphocytes % (A) 44 %; MCH 29.2 pg (25.0-35.0); MCHC 34.1 g/dL (31.0-37.0); MCV 85.6 fL (80.0-100.0); Mean Platelet Volume 7.5; Monocytes # (A) 0.2 k/uL (0-1.0); Monocytes % (A) 4 %; Neutrophils % (A) 46 %; Platelet Count 359 k/uL (150-450); RBC 4.92 m/uL (4.30-5.90); RDW 14.4 % (11.5-15.5); WBC 6.6 k/uL (3.8-10.6)
[2023-03-22 11:45] LABS: AST 33 U/L (17-59); African American GFR (CKD) >90 (>60 ml/min/1.73 sqM); Albumin 4.4 g/dL (3.5-5.0); Alkaline Phosphatase 121 U/L (38-126); Amylase 51 U/L (30-110); Anion Gap 16 mmol/L; Blood Urea Nitrogen 8 mg/dL (9-20); Calcium 8.7 mg/dL (8.4-10.2); Carbon Dioxide 20 mmol/L (22-30); Chloride 106 mmol/L (98-107); Glucose 144 mg/dL (74-99); Lipase 69 U/L (23-300); Non-African American GFR(CKD) >90 (>60 ml/min/1.73 sqM); Potassium 4.1 mmol/L (3.5-5.1); Sodium 142 mmol/L (137-145); Total Bilirubin 0.4 mg/dL (0.2-1.3); Total Protein 7.4 g/dL (6.3-8.2)
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
[2023-03-22 12:03] LABS: ALT 40 U/L (4-49)
[2023-03-22 12:16] LABS: Alcohol 386 mg/dL
== END 2023-03-22 11:51 | disposition left against medical advice (07) ==
LOC: EC 10:42
DX: F10.129 Alcohol abuse with intoxication, unspecified (principal); Z88.5 Allergy status to narcotic agent; Z86.59 Personal history of other mental and behavioral disorders; Z53.29 Procedure and treatment not carried out because of patient's decision for other reasons; Y90.8 Blood alcohol level of 240 mg/100 ml or more
CPT/HCPCS: 36415; 80053; 82150; 83690; 85025; 99284; G0480; 80320

== ENCOUNTER 2023-04-05 14:59 | Observation (INO) | payer OTHER ==
[2023-04-05] MEDS ORDERED: SODIUM CHLORIDE 0.9% 1,000 ML IV STA ×2 (15:53)
[2023-04-05] MEDS ORDERED: LORazepam 2 MG/ML INJ IV PRN ×2 (15:55)
[2023-04-05] MEDS ORDERED: THIAMINE 100 MG/ML 2 ML VIAL IM STA (15:55)
[2023-04-05] MEDS ORDERED: ONDANSETRON 4 MG/2 ML VIAL IVP STA (16:04)
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
[2023-04-05] MEDS ORDERED: NALOXONE 0.4 MG/ML 1 ML VIAL IV PRN (16:12)
[2023-04-05] MEDS ORDERED: ACETAMINOPHEN TAB 325 MG TAB PO PRN (16:12)
[2023-04-05 16:49] LABS: Basophils % (A) 1 %; Eosinophils # (A) 0.2 k/uL (0-0.7); Eosinophils % (A) 4 %; HCT 41.7 % (39.0-53.0); HGB 14.5 gm/dL (13.0-17.5); Lymphocytes # (A) 1.5 k/uL (1.0-4.8); Lymphocytes % (A) 31 %; MCH 29.2 pg (25.0-35.0); MCHC 34.8 g/dL (31.0-37.0); Mean Platelet Volume 8.6; Monocytes # (A) 0.4 k/uL (0-1.0); Monocytes % (A) 8 %; Neutrophils # (A) 2.6 k/uL (1.3-7.7); Neutrophils % (A) 55 %; RBC 4.97 m/uL (4.30-5.90); RDW 14.4 % (11.5-15.5); WBC 4.8 k/uL (3.8-10.6)
[2023-04-05 16:58] LABS: ALT 134 U/L (4-49); AST 275 U/L (17-59); African American GFR (CKD) >90 (>60 ml/min/1.73 sqM); Albumin 4.7 g/dL (3.5-5.0); Alkaline Phosphatase 173 U/L (38-126); Anion Gap 20 mmol/L; Blood Urea Nitrogen 10 mg/dL (9-20); Calcium 8.7 mg/dL (8.4-10.2); Carbon Dioxide 22 mmol/L (22-30); Chloride 96 mmol/L (98-107); Glucose 156 mg/dL (74-99); Magnesium 1.8 mg/dL (1.6-2.3); Non-African American GFR(CKD) >90 (>60 ml/min/1.73 sqM); Potassium 3.2 mmol/L (3.5-5.1); Sodium 138 mmol/L (137-145); Total Bilirubin 2.2 mg/dL (0.2-1.3); Total Protein 7.8 g/dL (6.3-8.2)
--- NOTE | 2023-04-05 17:09 | CT ---
EXAMINATION TYPE: CT brain wo con DATE OF EXAM: 04/05/2023 COMPARISON: Head CT dated 07/26/2019 HISTORY: ams CT DLP: 1173.8 mGycm Automated exposure control for dose reduction was used. FINDINGS: The ventricles, basal cisterns and sulci over convexities are mildly enlarged consistent with mild at rophy. No abnormal density and there is no acute intra or extra-axial hemorrhage. There is no mass effect or shift of midline structures. Posterior fossa is grossly normal. The intraorbital contents appear normal and symmetric. Visualized paranasal sinuses and mastoid air cells are well aerated. The calvarium is intact. IMPRESSION: 1. No acute bleed or mass effect. 2. Mild generalized atrophy. 3. No interval change compared to previous.
[2023-04-05 17:36] LABS: Platelet Count 44 k/uL (150-450)
[2023-04-05] MEDS ORDERED: POTASSIUM CHLORIDE ER 20 MEQ TAB.ER PO STA (17:51)
[2023-04-05 18:08] LABS: Alcohol 357 mg/dL
[2023-04-05] MEDS: ONDANSETRON 4 MG/2 ML VIAL IVP PRN (19:07)
[2023-04-05] MEDS: LORazepam 2 MG/ML INJ IV PRN ×2 (20:37→23:30)
[2023-04-06] MEDS: ONDANSETRON 4 MG/2 ML VIAL IVP PRN ×3 (01:39→21:59)
[2023-04-06] MEDS: THIAMINE 100 MG TAB PO SCH (08:36)
[2023-04-07] MEDS: ONDANSETRON 4 MG/2 ML VIAL IVP PRN ×2 (07:50→22:17)
[2023-04-07] MEDS: THIAMINE 100 MG TAB PO SCH (07:50)
[2023-04-07 11:52] LABS: Basophils # (A) 0.04 X 10*3/uL (0.00-0.10); Basophils % (A) 0.9 %; Eosinophils # (A) 0.13 X 10*3/uL (0.04-0.35); Eosinophils % (A) 2.9 %; HCT 36.9 % (39.6-50.0); HGB 12.7 d/dL (13.0-17.0); Immature Platelet Fraction 13.9 % (1.1-6.1); Lymphocytes # (A) 1.46 X 10*3/uL (0.90-5.00); MCH 28.7 pg (27.0-32.0); MCHC 34.4 d/dL (32.0-37.0); MCV 83.5 FL (80.0-97.0); Mean Platelet Volume 12.4 FL (9.5-12.2); Monocytes # (A) 0.37 X 10*3/uL (0.20-1.00); Monocytes % (A) 8.4 %; NRBC Per 100 WBC 0 X 10*3/uL (0.00-0.01); Neutrophils # (A) 2.38 X 10*3/uL (1.80-7.70); Neutrophils % (A) 53.9 %; Platelet Count 34 X 10*3/uL (140-440); RBC 4.42 X 10*6/uL (4.40-5.60); RDW 14.6 % (11.5-14.5); WBC 4.42 X 10*3/uL (4.50-10.00)
[2023-04-07] MEDS: NALTREXONE HCL 50 MG TAB PO SCH (18:50)
--- NOTE | 2023-04-07 18:55 | CT ---
EXAMINATION TYPE: CT angio chest CT DLP: 921.20 mGycm, Automated exposure control for dose reduction was used. DATE OF EXAM: 04/07/2023 6:49 PM COMPARISON: Chest radiograph 07/10/2019. CLINICAL INDICATION:Male, 58 years old with history of high d-dimer; elevated d-dimer TECHNIQUE/CONTRAST: CTA scan of the thorax is performed with IV Contrast, patient injected with 154ml mL of Isovue 370, M IP images are created and reviewed these are created on a separate workstation.. FINDINGS: Pulmonary Artery: There is no evidence for a filling defect within the pulmonary vasculature to sugge st acute pulmonary embolism. The pulmonary artery is of normal size. Lungs/Pleura: No evidence of focal consolidation, pleural effusion or pneumothorax. Airway: Large airways are patent. Heart: Heart is within normal limits for size. Atherosclerosis of the arterial vasculature. Vasculature: No evidence of aortic aneurysm. Mediastinum: No gross evidence of adenopathy. Musculoskeletal: No acute osseous abnormalities, left pectoralis major intramuscular lipoma. Soft Tissues: Unremarkable. Lower neck: No significant findings. Upper Abdomen: Extensive low-attenuation to the liver. Left renal cyst. IMPRESSION: 1. No evidence of pulmonary embolism. 2. Marked Hepatic steatosis.
--- NOTE | 2023-04-07 19:34 | US ---
EXAMINATION TYPE: US venous doppler duplex LE RT DATE OF EXAM: 04/07/2023 7:22 PM COMPARISON: NONE CLINICAL INDICATION: Male, 58 years old with history of elevated d-dimer; elevated d-dimer SIDE PERFORMED: Right TECHNIQUE: The lower extremity deep venous system is examined utilizing real time linear array sonog carson with graded compression, doppler sonography and color-flow sonography. VESSELS IMAGED: Common Femoral Vein Deep Femoral Vein Greater Saphenous Vein * Femoral Vein Popliteal Vein Small Saphenous Vein * Proximal Calf Veins (* superficial vessels) Right Leg: Negative for DVT IMPRESSION: Grayscale, color doppler, spectral doppler imaging performed of the deep veins of the lo wer extremities. There is normal flow, compressibility, vascular waveforms.
[2023-04-07] MEDS: lamoTRIgine 100 MG TAB PO SCH (20:05)
[2023-04-08] MEDS: ONDANSETRON 4 MG/2 ML VIAL IVP PRN (08:58)
[2023-04-08] MEDS: lamoTRIgine 100 MG TAB PO SCH (09:03)
[2023-04-08] MEDS: THIAMINE 100 MG TAB PO SCH (09:03)
[2023-04-08] MEDS: NALTREXONE HCL 50 MG TAB PO SCH (09:03)
[2023-04-08 12:36] VITALS: BP 125/78; PULSE 75; RESP 20; TEMP 98.2
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
[2023-04-08 16:13] LABS: % Iron Saturation 20.54 (15.00-50.00)
[2023-04-08 18:21] LABS: Hepatitis A Antibody IgM Nonreactive; Hepatitis B Core IgM Nonreactive; Hepatitis B Surface Antigen Nonreactive; Hepatitis C IgG Antibody Nonreactive
[2023-04-08 18:23] LABS: HIV 2 AB Non-Reactive (Non-Reactive); HIV AB P24 Non-Reactive (Non-Reactive); HIV P24 AG Non-Reactive (Non-Reactive)
--- NOTE | 2023-04-09 07:19 | CA ---
Transthoracic Echo Report Name: Ismael Benjamin Age: 58 Gender: M : 1965 Exam Date: 04/08/2023 11:32 Exam Location: [place] Echo Ht (in): 70 Wt (lb): 215 Ordering Physician: Martínez Hathaway MD Attending/Referring Phys: Floater Operator Procedure CPT: Indications: dyspnea Cardiac Hx: Technical Quality: Fair Contrast 1: Total Dose (mL): Contrast 2: Total Dose (mL): MEASUREMENTS (Male / Female) Normal Values 2D ECHO LV Diastolic Diameter PLAX 4.9 cm 4.2 - 5.9 / 3.9 - 5.3 cm LV Systolic Diameter PLAX 3.4 cm IVS Diastolic Thickness 0.9 cm 0.6 - 1.0 / 0.6 - 0.9 cm LVPW Diastolic Thickness 1.1 cm 0.6 - 1.0 / 0.6 - 0.9 cm LV Relative Wall Thickness 0.4 LVOT Diameter 2.1 cm Ascending Aorta Diameter 3.8 cm M-MODE Aortic Root Diameter MM 3.2 cm LA Systolic Diameter MM 4.1 cm LA Ao Ratio MM 1.3 AV Cusp Separation MM 2.1 cm DOPPLER AV Peak Velocity 128.4 cm/s AV Peak Gradient 6.6 mmHg AV Mean Velocity 96.5 cm/s AV Mean Gradient 4.0 mmHg AV Velocity Time Integral 26.7 cm LVOT Peak Velocity 93.2 cm/s LVOT Peak Gradient 3.5 mmHg LVOT Velocity Time Integral 17.0 cm LVOT Stroke Volume 60.7 cm??? LVOT Stroke Volume Index 28.2 ml/m??? LVOT Cardiac Index 1777.5 cm???/min???m??? AV Area Cont Eq vti 2.3 cm??? AV Area Cont Eq pk 2.6 cm??? Mitral E Point Velocity 62.5 cm/s Mitral A Point Velocity 73.2 cm/s Mitral E to A Ratio 0.9 MV Deceleration Time 232.7 ms LV E' Lateral Velocity 7.2 cm/s Mitral E to LV E' Lateral Ratio 8.7 LV E' Septal Velocity 6.8 cm/s Mitral E to LV E' Septal Ratio 9.1 Right Atrial Pressure 8.0 mmHg FINDINGS Left Ventricle Left ventricular cavity size normal. Left ventricular wall thickness normal. Low normal left ventricular systolic function with no obvious regional wall motion abnormalities. Left ventricular ejection fraction is estimated at 50%. Right Ventricle Moderate right ventricular dilatation. Right Atrium Moderate right atrial dilatation. Left Atrium Mildly increased left atrial area. Mitral Valve Structurally normal mitral valve. No mitral regurgitation. Aortic Valve Trileaflet aortic valve. No aortic regurgitation. Tricuspid Valve Structurally normal tricuspid valve. No tricuspid regurgitation. Pulmonic Valve Structurally normal pulmonic valve. No pulmonic regurgitation. Pericardium No pericardial effusion. Aorta Normal size aortic root and upper normal proximal ascending aorta. CONCLUSIONS Technically difficult study for interpretation. Poorly visualized endocardium Low-normal LV systolic function with an EF at 50% Previewed by: Dr. Mike Maguire MD (Electronically Signed) Final Date: 09 April 2023 07:18
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
--- NOTE | 2023-04-09 15:29 | HP ---
HISTORY AND PHYSICAL HISTORY OF PRESENT ILLNESS: This 58-year-old white male came to the hospital for detox, sent here from home after family had someone go to visit his house and sent him here for detox. He stopped his medicines that he normally takes for alcohol suppression including Lamictal 100 b.i.d. and naltrexone 50 mg a day for which he has been alcohol free for almost a year and he kept on a job over this time, until he just stopped it, he said he did not think he needed it anymore after doing so well for so long, he stopped it all a month ago and since then has been downhill. Now he is drinking heavily again. REVIEW OF SYSTEMS: A 14-point review of systems is negative except for mentioned in HPI. PAST MEDICAL HISTORY: Dyslipidemia, gout. Had orthopedic surgeries, left leg surgery, total leg BKA. History of depression. SOCIAL HISTORY: Abuses alcohol daily, never smoked. FAMILY HISTORY: Mother negative, father heart disease. PHYSICAL EXAMINATION: VITAL SIGNS: Temperature 97.8, blood pressure 139/83, pulse 81, respiratory rate 16 to 18, and O2 96. GENERAL: A 58-year-old white male, in no acute distress. HEENT: Pupils equal, round, and reactive. LUNGS: Clear. CARDIOVASCULAR: S1, S2. NEUROLOGIC: Cranial nerves are intact. PSYCH: Poor mood and affect. SKIN: Warm, dry, intact. ASSESSMENT: History of alcohol abuse, history of bipolar, alcohol poisoning acute, alcohol withdrawal in place. He will be started back on his home medicines and elevated D- dimer he has, will rule out DVT, PE, hypokalemia. I will replace his potassium, thrombocytopenia. Will get Hematology to see him for this. Prognosis is guarded. Please see further orders in chart. [facility] protocol. MMODL / IJN: [id number] /
== END 2023-04-08 18:22 | disposition home or self-care (01) ==
LOC: EC 14:59 → INTOOBSV 16:19 → 5NMEDONC 16:19
PROVIDERS: ADMIT Family Medicine; ATTEND Family Medicine
DX: F10.229 Alcohol dependence with intoxication, unspecified (principal); F10.239 Alcohol dependence with withdrawal, unspecified; Y90.5 Blood alcohol level of 100-119 mg/100 ml; W19.XXXA Unspecified fall, initial encounter; D69.6 Thrombocytopenia, unspecified; E87.6 Hypokalemia; Z91.148 Patient's other noncompliance with medication regimen for other reason; K85.90 Acute pancreatitis without necrosis or infection, unspecified; E10.21 Type 1 diabetes mellitus with diabetic nephropathy; E78.5 Hyperlipidemia, unspecified; I10 Essential (primary) hypertension; F31.9 Bipolar disorder, unspecified; R41.82 Altered mental status, unspecified; M10.9 Gout, unspecified; Z88.5 Allergy status to narcotic agent; Z97.14 Presence of artificial left leg (complete) (partial); Z96.653 Presence of artificial knee joint, bilateral; Z82.49 Family history of ischemic heart disease and other diseases of the circulatory system
CPT/HCPCS: 96376 ×4; 96375; 96361; 96372; 96374; 99285; 36415; 93306; 83921; 85379; 82747; 80053; 80074; 82607; 82728; 82525; 83540; 83550; 83735; 85025 ×2; 85384; 87390; 93971; 70450; 71275; G0378 ×2; G0480; J2060; J3411; J2405 ×4; Q9967; 80320